=== PATIENT | female | born 1980 | race Caucasian/White ===

== ENCOUNTER 2019-04-18 07:13 | Emergency (ER) | payer MEDICARE, MEDICAID, SELFPAY ==
--- NOTE | ~2019-04-18 | XR_ITS ---
EXAMINATION: XR chest 2V EXAM DATE: 04/18/2019 08:39 INDICATION: Cough, shortness of breath and fever. TECHNIQUE: Frontal and lateral projections of the chest obtained and reviewed. Comparison is made to prior examination from 08/10/2006. FINDINGS: The lungs are clear. There are no pleural effusions. The cardiomediastinal silhouette is within normal limits. There is no pneumothorax suspected. The bones and soft tissues are unremarkab le. There are cholecystectomy clips. There is a left-sided Chemo-Port with intact line. IMPRESSION: No acute cardiopulmonary findings. Reviewed, dictated and finalized at location A. 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
[2019-04-18 07:19] VITALS: BP 154/92; PULSE 90; RESP 20; TEMP 36.8; O2SAT 94
[2019-04-18 07:28] VITALS: RESP 22; O2SAT 97
--- NOTE | 2019-04-18 07:59 | ED.URI ---
HPI - URI/Sore Throat General Chief Complaint: Unspecified Stated Complaint: flu like symptoms Time Seen by Provider: 04/18/19 07:33 Source: patient Mode of arrival: ambulatory Limitations: no limitations History of Present Illness HPI Narrative: Patient is a 38-year-old female who presents to the emergency department with complaint of flulike symptoms. Patient reports onset of symptoms 2 days ago. Patient had onset of wheezing last night. She reports mildly productive cough, congestion, and fever as high as 102. She denies any nausea, vomiting, or diarrhea. She reports back pain, myalgias, and headache. MD elicited complaint: cough Onset (ago): day(s) (2) Consistency: constant Associated symptoms: fever, myalgias, headache, nasal congestion and cough Related Data Allergies Allergy/AdvReac Type Severity Reaction Status Date / Time prochlorperazine Allergy Mild Unverified 11/23/13 16:32 promethazine Allergy Mild Unverified 11/23/13 16:32 Shrimp Allergy Severe THROAT Uncoded 11/23/13 16:32 SWELLS RASH Contrast Media Allergy Mild Uncoded 11/23/13 16:32 POLYESTER Allergy Mild Uncoded 06/18/07 16:44 Review of Systems Review of Systems: All systems reviewed & are unremarkable except as noted in HPI and below Constitutional: Constitutional: Reports chills and Reports fever(s) ENT: Reports nasal congestion Respiratory: Respiratory: Reports cough, Reports dyspnea and Reports wheezing Gastrointestinal: Gastrointestinal: Denies diarrhea, Denies nausea and Denies vomiting Musculoskeletal: Musculoskeletal: Reports back pain and Reports myalgias PMFSH Past Medical History Medical History (Updated 04/18/19 @ 09:15 by Sandy Villagran MD) Factor XII deficiency Neuropathy Port-A-Cath in place RSD (reflex sympathetic dystrophy) Surgical History Surgical History (Updated 04/18/19 @ 08:05 by Sandy Villagran MD) History of cholecystectomy History of orthopedic surgery History of strabismus surgery Social History Social History (Updated 04/18/19 @ 08:05 by Sandy Villagran MD) Smoking status: Former smoker Additional smoking assessment comments: Currently vaping Gender identity (if verbalized by the patient): Female Exam Const: General: cooperative, alert and ill appearing acutely Nutritional Appearance: well nourished Orientation/consciousness: patient oriented x3 Limitations: no limitations HENMT: Mouth: Yes lip normal and Yes moist mucous membranes Resp: Effort & Inspection: normal respiratory effort and Actively coughing actively coughing Auscultation: wheezes scattered wheezes Cardio: Rate: regular rate Rhythm: regular rhythm GI: GI Palp: Yes Soft to palpation and No Tenderness to palpation present (GI) Auscultation: normal bowel sounds Skin: General skin exam: normal color Neuro: General: patient oriented x3 Cognition (Neuro): normal cognition Speech: normal speech Extrem: General: normal to inspection, full ROM and no clubbing, cyanosis or edema Psych: Mental Status: mental status grossly normal Affect: normal affect Attitude: cooperative Course Course Emergency Course: Wheezing improved after nebulizer treatment. Patient instructed on MDI use with spacer by respiratory therapy staff. Patient will be prescribed Tamiflu as she is in the treatment window and having respiratory symptoms. Patient advised on symptomatic management and appropriate follow-up care. Vital Signs Vital signs: Vital Signs Temperature 98.2 F 04/18/19 07:19 Pulse Rate 90 04/18/19 07:19 Respiratory Rate 20 04/18/19 07:19 Blood Pressure 154/92 H 04/18/19 07:19 Pulse Oximetry 94 04/18/19 07:19 Temperature 98.2 F 04/18/19 07:19 Pulse Rate 99 04/18/19 09:05 Respiratory Rate 16 04/18/19 09:05 Blood Pressure 113/71 04/18/19 09:05 Pulse Oximetry 96 04/18/19 09:05 MDM - URI/Sore Throat Lab Data Attestation: I reviewed the patient's lab results. Labs:
[2019-04-18] MEDS: ALBUTEROL SULFATE NEB 2.5 MG/0.5 ML INH 5 MG INHALATION (08:07)
[2019-04-18] MEDS: IPRATROPIUM BR 0.02% INH SOLN 0.5 MG/2.5 ML VIAL INHALATION (08:07)
[2019-04-18 08:08] VITALS: PULSE 92; RESP 20
[2019-04-18 09:05] VITALS: BP 113/71; PULSE 99; RESP 16; O2SAT 96
[2019-04-18 09:33] VITALS: BP 113/73; PULSE 92; RESP 18; O2SAT 99
== END 2019-04-18 09:34 | disposition home or self-care (01) ==
PROVIDERS: Emergency Provider Emergency Medicine
DX: J10.1 Influenza due to other identified influenza virus with other respiratory manifestations (principal)
CPT/HCPCS: 71046; 87804; 94640; 99283

== ENCOUNTER 2020-07-27 14:59 | Outpatient (CLI) | payer MEDICARE, MEDICAID, SELFPAY ==
--- NOTE | ~2020-07-27 | MM_ITS ---
EXAMINATION: MM screening alton BI w ryan HISTORY: Screening mammogram TECHNIQUE: Craniocaudal and mediolateral oblique 3-D tomosynthesis images were obtained and synthetic 2-D images were generated. CAD analysis was submitted and interpreted. COMPARISON: 02/04/2019 bilateral digital screening mammogram BREAST PARENCHYMAL COMPOSITION: The breasts are extremely dense, which lowers the sensitivity of mamm ography. FINDINGS: Bilateral breast masses are suggested including approximately 2.47 mass in the upper mid in ner left breast at mid depth with halo sign, suggestive of cysts and suggestion of interval approxima tely 1.6 cm mass in the upper mid outer right breast. IMPRESSION: 1. Bilateral breast masses are suggested 2. Bilateral diagnostic mammography and bilateral breast ultrasound examination are recommended. BI-RADS Category 0: Incomplete: Needs additional imaging evaluation. Reviewed, dictated and finalized at location A.
== END 2020-07-27 15:00 | disposition home or self-care (01) ==
LOC: ANHIMG 15:15
PROVIDERS: PCP Student in an Organized Health Care Education/Training Program
DX: Z12.31 Encounter for screening mammogram for malignant neoplasm of breast (principal); R92.8 Other abnormal and inconclusive findings on diagnostic imaging of breast
CPT/HCPCS: 77063; 77067

== ENCOUNTER 2020-09-04 12:26 | Outpatient (CLI) | payer MEDICARE, MEDICAID, SELFPAY ==
--- NOTE | ~2020-09-04 | MMUS_ITS ---
EXAMINATION: MM diagnostic mammo BI, US breast BI complete HISTORY: Bilateral breast masses reported on 07/27/2020 screening mammogram TECHNIQUE: Additional 3-D tomosynthesis images of both breasts were performed and synthetic 2-D image s were generated. CAD analysis was submitted and interpreted. High resolution complete bilateral [address] ultrasound was performed. COMPARISON: 07/27/2020, 02/04/2019 bilateral digital screening mammogram examinations FINDINGS: MAMMOGRAPHIC FINDINGS: Very dense stroma is noted bilaterally which may obscure masses. There is an approximately 2 cm mass in the central left breast with halo sign, likely a cyst. Additio nal masses are suggested but are partially obscured by fibroglandular stroma. Bilateral complete [address] ultrasound examination was performed. ULTRASOUND: No suspicious solid lesion or suspicious shadowing of either breast is evident. Right breast: There are 2 right breast simple cysts, the larger cyst at 1:00 5 cm from the nipple, measuring up to 1.5 cm maximal dimension. 8 mm cyst is noted at 10:00 6 cm from the nipple. Left breast: There is a mildly septated cyst at the left breast at 12:00 2 cm from the nipple, measuring up to 2.5 x 2.6 x 12 mm dimension, with through transmission posterior enhancement and no internal vascularity . There is an 8 mm cyst on the left at L2-3 o'clock. IMPRESSION: 1. No mammographic evidence of malignancy; bilateral breast cysts 2. Routine mammographic screening is recommended BI-RADS Category 2: Benign finding(s). Reviewed, dictated and finalized at location A. IMPRESSION: 1. No mammographic evidence of malignancy; bilateral breast cysts 2. Routine mammographic screening is recommended BI-RADS Category 2: Benign finding(s).
== END 2020-09-04 12:27 | disposition home or self-care (01) ==
LOC: ANHIMG 12:27
PROVIDERS: PCP Student in an Organized Health Care Education/Training Program; Visit Provider Obstetrics & Gynecology
DX: R92.8 Other abnormal and inconclusive findings on diagnostic imaging of breast (principal)
CPT/HCPCS: 76641; 77066

== ENCOUNTER 2021-08-11 15:54 | Emergency (ER) | payer MEDICARE, MEDICAID, SELFPAY ==
[2021-08-11 16:06] VITALS: BP 128/73; PULSE 106; RESP 18; TEMP 36.2; O2SAT 99
--- NOTE | 2021-08-11 16:07 | ED.WOUNDLAC ---
HPI - Wound/Laceration General Chief Complaint: Wound/Laceration Stated Complaint: laceration rt middle finger Time Seen by Provider: 08/11/21 16:07 Source: patient, RN notes reviewed and old records reviewed Mode of arrival: ambulatory Limitations: no limitations History of Present Illness HPI narrative: 41 year old female who presents to [facility] care with complaints of laceration to the tip of her right middle finger while using a new mandolin to cut up vegetables. Patient reports that she can't get it to stop bleeding with a pressure dressing. Patient has history of bleeding disorder with platelet disease and Factor 12 deficiency and has to take DDAVP at intervals for her disease process and has implanted port to receive medications, Patient states that she last took DDAVP yesterday. Patient reports that she has not had tetanus for 10 years. Onset (ago): minute(s) (45 minutes prior to arrival) Extremity Location: Right: hand (tip of right middle finger) Patient tetanus UTD: No Treatments prior to arrival: bandage Related Data Home Medications Medication Instructions Recorded Confirmed zolpidem 10 mg tablet 10 tablet HS 08/11/21 08/11/21 Allergies Allergy/AdvReac Type Severity Reaction Status Date / Time prochlorperazine Allergy Mild Verified 08/11/21 16:09 promethazine Allergy Mild Verified 08/11/21 16:09 Shrimp Allergy Severe THROAT Uncoded 08/11/21 16:09 SWELLS RASH Contrast Media Allergy Mild Uncoded 08/11/21 16:09 POLYESTER Allergy Mild Uncoded 08/11/21 16:09 Review of Systems Review of Systems: CONSTITUTIONAL: Denies fever, chills, or sweats. EYES: Denies visual changes, redness, or discharge. ENT: Denies rhinorrhea, congestion, sore throat, or otalgia. CARDIOVASCULAR: Denies chest pain, palpitations, or edema. RESPIRATORY: Denies cough or dyspnea. GASTROINTESTINAL: Denies abdominal pain, nausea, vomiting, or diarrhea. GENITOURINARY: Denies dysuria or hematuria. SKIN: Denies rash or itching.positive for avulsion of skin from the tip of right middle finger with bleeding present. MUSCULOSKELETAL: Denies back pain, joint pain, or myalgia. NEUROLOGIC: Denies headache, numbness, or weakness. PSYCHIATRIC: Denies anxiety or depression. [facility] Past Medical History Medical History Factor XII deficiency Neuropathy Port-A-Cath in place RSD (reflex sympathetic dystrophy) Surgical History Surgical History History of cholecystectomy History of orthopedic surgery History of strabismus surgery Social History Social History (Updated 08/11/21 @ 16:52 by Catie Grimaldo NP) Smoking status: Current every day smoker Tobacco type: e-cigarettes/vaping Additional smoking assessment comments: Currently vaping Substance use type: does not use Living arrangements: with family Gender identity (if verbalized by the patient): Female Comments At time of signature, agree with nursing past medical, surgical, social and family history. There is no relevant family history pertinent to the presenting complaint Exam Narrative: GENERAL: Well-appearing, well-nourished, and in no acute distress. HEAD: Normocephalic, atraumatic. EYES: PERRLA and EOMI. ENT: Nares clear, no rhinorrhea or epistaxis. Mucous membranes moist.TM's normal with good light reflex, throat pink with no lesions or exudates, tonsils with no swelling NECK: Supple. No lymphadenopathy CHEST: Clear to auscultation. No respiratory distress.SAO2 99% on room air HEART: Regular rate and rhythm. No murmur heard. Normal peripheral pulses. ABDOMEN: Soft, nontender, nondistended, normal active bowel sounds. EXTREMITIES: Normal range of motion. No edema. SKIN: Warm, dry, no rash.avulsion at tip of right middle finger with bleeding, stopped with use of Surgicel and pressure dressing. NEURO: No focal deficits. Alert and oriented x3. Course Course L
[2021-08-11] MEDS: TETANUS,DIPHTHERIA,AC PERTUSSIS ADULT (0.5 ML) BOOSTRIX IM (16:24)
== END 2021-08-11 16:47 | disposition home or self-care (01) ==
PROVIDERS: Emergency Provider Registered Nurse; PCP Student in an Organized Health Care Education/Training Program
DX: S61.202A Unspecified open wound of right middle finger without damage to nail, initial encounter (principal); W27.8XXA Contact with other nonpowered hand tool, initial encounter; Z23 Encounter for immunization; F17.290 Nicotine dependence, other tobacco product, uncomplicated; D68.2 Hereditary deficiency of other clotting factors; G62.9 Polyneuropathy, unspecified; G90.50 Complex regional pain syndrome I, unspecified
CPT/HCPCS: 90471; 90715; 99212; G0463

== ENCOUNTER 2022-10-04 21:48 | Emergency (ER) | payer MEDICARE, MEDICAID, SELFPAY ==
[2022-10-04] VITALS (7 sets, daily range): BP systolic 141–163; BP diastolic 72–80; PULSE 106–130; RESP 13–22; TEMP 36.6; O2SAT 97–100
--- NOTE | 2022-10-04 23:17 | ED.GENADULT ---
HPI - General Adult General Chief complaint: Anxiety Stated complaint: possible allergic reaction Time Seen by Provider: 10/04/22 22:02 History of Present Illness HPI narrative: This is a 42-year-old female presenting ED after a possible allergic reaction. Patient had a sip of moonshine and then became very flushed and nauseous. They then called EMS who gave her a dose of epinephrine. After receiving epinephrine she became jittery, developed feelings of impending doom with perioral tingling. patient has history of anxiety. patient has nausea but no vomiting, no wheezing, no urticaria, no diarrhea. Related Data Home Medications Medication Instructions Recorded Confirmed zolpidem 10 mg tablet 10 tablet HS 08/11/21 08/11/21 Allergies Allergy/AdvReac Type Severity Reaction Status Date / Time prochlorperazine Allergy Mild Unknown Verified 10/04/22 21:50 promethazine Allergy Mild Unknown Verified 10/04/22 21:50 Shrimp Allergy Severe THROAT Uncoded 10/04/22 21:50 SWELLS RASH Contrast Media Allergy Mild Unknown Uncoded 10/04/22 21:50 PMFSH Past Medical History Medical History Factor XII deficiency Neuropathy Port-A-Cath in place RSD (reflex sympathetic dystrophy) Surgical History Surgical History History of cholecystectomy History of orthopedic surgery History of strabismus surgery Social History Social History Smoking status: Current every day smoker Tobacco type: e-cigarettes/vaping Additional smoking assessment comments: Currently vaping Substance use type: does not use Living arrangements: with family Gender identity (if verbalized by the patient): Female Exam Narrative: APPEARANCE: Patient appears anxious Head: atraumatic. speaking in normal voice EYES: EOMI, NOSE: Atraumatic NECK: Trachea midline RESPIRATORY: No increased rate of breathing, clear to auscultation CARDIOVASCULAR: tachycardic, no peripheral edema ABDOMINAL: Non-distended MUSCULOSKELETAl: No obvious deformities NEURO: Alert. Moving 4/4 extremities SKIN:: no urticaria PSYCHIATRIC: Normal affect Course Vital Signs Vital signs: Vital Signs Temperature 97.8 F 10/04/22 21:51 Pulse Rate 113 H 10/04/22 21:51 Respiratory Rate 22 H 10/04/22 21:51 Blood Pressure 149/74 H 10/04/22 21:51 Pulse Oximetry 100 10/04/22 21:51 Oxygen Delivery Room Air 10/04/22 21:51 Temperature 97.8 F 10/04/22 21:51 Pulse Rate 108 H 10/04/22 23:30 Respiratory Rate 17 10/04/22 23:30 Blood Pressure 141/72 H 10/04/22 22:46 Pulse Oximetry 97 10/04/22 22:05 Oxygen Delivery Room Air 10/04/22 22:05 Medical Decision Making MDM Narrative Medical decision making narrative: -Presentation: 42-year-old female presenting with possible allergic reaction and after receiving epi started hyperventilating. -DDX includes but is not limited to: cutaneous allergies, anxiety attack, epinephrine sensitivity -Co-morbidities complicating care: anxiety -Social determinants of health: disabled due to pain, lives with family -External Chart Review: none -Hx from independent Sources: EMS -Independent interpretation of studies: none -Discussion of Management/Consultants: none -Dx tests considered but not ordered: none -Procedures: none -Interventions: 2 mg Ativan, 2 L normal saline, 10mg dexamethasone, Zyrtec 10mg, Pepcid 40 mg -Shared decision making / Disposition: patient's symptoms resolved after Ativan. She has had no recurrence of her anxiety or flushing. Patient will be discharged. Return precautions given. -RX Vital Signs Vital Signs: Vital Signs Temperature 97.8 F 10/04/22 21:51 Pulse Rate 113 H 10/04/22 21:51 Respiratory Rate 22 H 10/04/22 21:51 Blood Pressure 149/74 H 10/04/22 21:51 Pulse Oximetry 100 07/2
[2022-10-04] MEDS: FAMOTIDINE 20 MG/2 ML VIAL 40 MG (23:35)
[2022-10-04] MEDS: LORazepam INJ (*CRX) 2 MG/ML VIAL (23:35)
[2022-10-04] MEDS: SODIUM CHLORIDE 0.9% IV 2,000 ML 999 ML (23:35)
--- NOTE | 2022-10-04 23:36 | PC.NURSE ---
This RN overrode medications prescribed by EDP Dr. Hollis due to downtime.
[2022-10-05 00:53] VITALS: BP 117/68; PULSE 98; RESP 16; O2SAT 96
== END 2022-10-05 01:00 | disposition home or self-care (01) ==
PROVIDERS: Emergency Provider Emergency Medicine; PCP Student in an Organized Health Care Education/Training Program
DX: T78.40XA Allergy, unspecified, initial encounter (principal); R23.2 Flushing; F41.9 Anxiety disorder, unspecified; D68.2 Hereditary deficiency of other clotting factors; F17.290 Nicotine dependence, other tobacco product, uncomplicated; Z90.49 Acquired absence of other specified parts of digestive tract
CPT/HCPCS: 96361; 96374; 96375; 99284; J1100; J2060; J7030

== ENCOUNTER 2025-02-12 16:20 | Emergency (ER) | payer MEDICARE, MEDICAID, SELFPAY ==
--- OUTSIDE RECORDS SUMMARY | 2023-08-29 15:30 | XMS_ITS ---
Author Organization [facility] ([address]) Address [address] [place] [address] Care Team Providers Care Gold Cutter Name Role Phone JavierAquiles Primary Care Provider Hernan Mitchell Unavailable [phone] [facility], Provider Unavailable Unavailab le Allergies Allergen (clinical drug ingredient) Drug/Non Drug Allergy documented on EMR Reaction Allergy Type Onset Date Status Information temporarily unavailable COMPAZINE (uncoded) Dystonic Allergy Active REASON FOR VISIT Multum To [facility] Conversion Encounter Medications Medication SIG (Take, Route, Fr equency, Duration) Notes Start Date End Date Status Cetirizine HCl 10 MG 1 tab(s) orally BID , 3-4 times daily PRN; Duration: 30 days Active Pepcid 20 MG 1 tab(s) orally 2 ti mes a day; Duration: 30 days Active Lexapro 20 MG 1 tab(s) orally once a day Active oxyCODONE HCl 5 MG 1 tab(s) orally ever y 8 hours, PRN Active Zolpidem Tartrate 10 MG 1 tab(s) orally once a day (at bedtime) Active Encounters Encounter Location Date Provider Diagnosis [facility] [address] [address] 08/29/2023 Provider [facility] Other urticaria L50.8 Assessments Encounter Date Diagnosis (ICD Code) Assessment Notes Treatment Notes Treatment Clinical Notes Section Notes 08/29/2023 Other urticaria (ICD-10 - L50.8) Plan Of Treatment Medication Medication Name Sig Start Date Stop Date Notes Cetirizine HCl 10 MG 1 tab(s) orally BID , 3-4 times daily PRN; Duration: 30 days Pepcid 20 MG 1 tab(s) orally 2 ti mes a day; Duration: 30 days Progress Notes * Liza DONISDOB:[birth year] (44 yo F)Acc No.[id number]:08/29/2023 Patient: Liza MORA Provider: Arsen Stockton :1980 A ge:43 Y S ex:Female Date:08/29/2023 Address:[address] [place], [place] [id number] Pcp:Aquiles Herrera Subjective: * Chief Complaints: * [facility] . [facility] * Medical History: * Medications: T aking Zolpidem Tartrate 10 MG Tablet 1 tab(s) orally once a day (at bedtime) , Taking Lexapro 20 MG Tablet 1 tab(s) orally once a day , Taking oxyCODONE HCl 5 MG Tablet 1 tab(s) orally every 8 hours, PRN * Allergies: C OMPAZINE: Dystonic. Objective: * Vitals: Assessment: * Assessment: 1. 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
--- OUTSIDE RECORDS SUMMARY | 2025-02-12 16:23 | XMS_ITS | Clinical Summary ---
Author Organization [facility] Address [address] [place] [address] Care Team Providers Care Regional Hr Manager Name Role Phone Aquiles Herrera Arsen SANTOS Primary Care Provider + Burton Campbell MD Unavailable [phone] Allergies Active Allergy Reactions Criticality Noted Date Comments Aspirin Other (see comment),Unknown 01/19/2009 Factor XII deficiency Pt has clotting disorder Diphenhydramine Palpitations Low 05/20/2019 Ibuprofen Other (see comment),Unknown 01/19/2009 Factor XII deficiency Pt has clotting disorder Iodine Unknown Low 10/04/2022 Prochlorperazine Other (see comment),Unknown 11/05/2018 Dystonic reaction Promethazine Unknown Low 10/04/2022 Dystonic Shellfish Allergy Throat swelling High 10/04/2022 Medications sodium chloride 0.9 % solution 020 Active heparin flush 100 unit/mL Solution 5 mLs (500 Units total). 021 Active clotrimazole 1 % creamIndications: Rash and nonspecific skin eruption Apply topically 2 (two) times daily. Use for 4 weeks; call back if not improving 60 g 021 Active EPINEPHrine 0.3 MG/0.3ML injectionIndicati ons:Anaphylaxis, subsequent encounter,Shellfi sh allergy Inject 0.3 mLs (0.3 mg total) into the muscle as needed for Anaphylaxis. 1 each 023 Active hydrocortisone 2.5 % creamIndications: Hemorrhoids, unspecified hemorrhoid type Apply topically 2 (two) times daily. Do not use for more than 4 weeks continuously 28 g 023 Active desmopressin (DDAVP) 4 MCG/ML injection 023 Active cetirizine (ZYRTEC) 10 MG tablet Take 1 tablet (10 mg total) by mouth daily. Active omeprazole (PRILOSEC) 40 MG capsule Active ondansetron (ZOFRAN-ODT) 4 MG disintegrating tablet Active escitalopram (LEXAPRO) 20 MG tabletIndications :Anxiety Take 1 tablet (20 mg total) by mouth daily. 90 tablet 3 024 Active oxyCODONE immediate release (ROXICODONE) 10 MG immediate release tabletIndications :Chronic Pain Take 1 tablet (10 mg total) by mouth 3 (three) times daily as needed. Indications: Chronic Pain 90 tablet 025 Active HYDROcodone-aceta minophen (NORCO) 5-325 MG tabletIndications :Acute Pain < 3 Day Supply Take 1 tablet by mouth every 6 (six) hours as needed for Pain. Indications: Acute Pain < 3 Day Supply 10 tablet 025 Active zolpidem (AMBIEN) 10 MG tabletIndications :Primary insomnia TAKE 1 TABLET(10 MG) BY MOUTH EVERY NIGHT NEEDED FOR SLEEP 30 tablet 2 025 Active LORazepam (ATIVAN) 1 MG tabletIndications :Anxiety TAKE 1 TABLET BY MOUTH TWICE DAILY NEEDED 60 tablet 025 Active LORazepam (ATIVAN) 1 MG tabletIndications :Anxiety TAKE 1 TABLET BY MOUTH TWICE DAILY NEEDED 60 tablet 025 2024 Discontinued Active Problems Problem Noted Date Diagnosed Date IUD (intrauterine device) in place 04/01/2023 Urticaria 01/06/2023 Chronic rhinitis 01/06/2023 Epigastric pain 08/01/2022 Overview (08/01/2022): Added automatically from request for surgery [id number] Nausea 08/01/2022 Overview (08/01/2022): Added automatically from request for surgery [id number] Diarrhea, unspecified type 08/01/2022 Overview (08/01/2022): Added automatically from request for surgery [id number] Melena 08/01/2022 Overview (08/01/2022): Added automatically from request for surgery [id number] Hemorrhoids, unspecified hemorrhoid type 023 Overview (08/01/2022): Added automatically from request for surgery [id number] Increased frequency of urination 05/30/2020 Overview (01/06/2023): Frequency of micturition; Progress: Stable Added By: Naomy Mcneill Add to Current Problems: YES ProblemStatus: Current Primary insomnia 03/19/2020 Anxiety 03/19/2020 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 Drop foot gait 11/07/2018 Primary osteoarthritis of left knee 11/07/2018 Chronic prescription opiate use 11/07/2018 Family history of breast cancer 06/24/2018 Overview (01/06/2023): Family history of breast cancer; Progress: Stable Added By: Karma Armstrong Add to Current Problems: NO ProblemStatus: Resolve; Start Date : 07/12/2014 Family history of malignant neoplasm of breast; Progress: Stable Added By: Yoon Mcdaniel Add to Current Problems: YES ProblemStatus: Current Evaluation for intrauterine contraception 2014 Overview (01/06/2023): Patient with intrauterine contraceptive device (IUD); Location: None Severity: Moderate Progress: Stable Added By: Liza Hughes Add to Current Problems: YES ProblemStatus: Current Patient with intrauterine contraceptive device (IUD); Severity: Moderate Progress: Stable Added By: Liza Hughes Add to Current Problems: NO ProblemStatus: Resolve Family history of malignant neoplasm of breast in first degree relative 07/12/2014 Overview (01/06/2023): Family history of breast cancer; Location: None Progress: Stable Added By: Karma Armstrong Add to Current Problems: YES ProblemStatus: Current Von Willebrands disease 01/22/2009 Overview (11/05/2018): Overview: Variant Resolved Problems Problem Noted Date Diagnosed Date Resolved Date Medical marijuana use 11/07/20182023 Electrolyte abnormality 01/22/200910/15 Suicidal ideation 01/22/2009 11/05/2018 Encounters Date Type Department Care Team Description 12/13/2024 Results Follow-Up [facility] Family & Internal Medicine [address] [address] Georgina Lombardo H, APNP MG/PCCL UDS W CONF, VITAMIN D, 25 OH, LIPID PANEL, Additional followed-up results: 3 12/09/2024 8:40 AM CDT Office Visit [facility] Family & Internal [address] [address] Aquiles Herrera, DO Anxiety (6 month follow up. No questions or concerns. ) 12/09/2024 Travel from Last 3 Months Immunizations Immunization Administration Dates Next Due Fluzone 6 Months+ Quad (0.5 mL Prefilled Syringe) 03/19/2020 Influenza Adult (Generic) 02/18/2023(Def erred: Patient Refused),07/10/2021(Deferred: Patient Refused),03/19/2020 PFIZER COVID-19 (ORIGINAL FORMULATION, PURPLE CAP) mRNA, LNP-S, PF, 30 MCG/0.3 ML DOSE 06/09/2020,05/17/2020 Tdap (Generic) 08/11/2021 Family History * Patient is adopted Medical History Relation Comments Cancer Maternal Aunt Breast Cancer Maternal Grandmother Breast Cancer Mother Breast Cancer Sister Breast Relation Status Comments Maternal Aunt Maternal Grandmother Mother Sister Social History Tobacco Use Types Packs/Day Years Used Date Smoking Tobacco: Former Cigarettes 1 - 2016 Smokeless Tobacco: Never Tobacco Cessation:Counseling Given: Yes Comments:I vape currently Alcohol Use Standard Drinks/Week Comments Never 0 (1 standard drink = 0.6 oz pur e alcohol) AUDIT-C Answer Date Recorded Frequency of Alcohol Consumption Never 11/05/2018 Average Number of Drinks Not on file 019 Frequency of Binge Drinking Not on file 10/15 PHQ-2 Answer Date Recorded Patient Health Questionnaire-2 Score 0 12/09/2024 Comments No Sex and Gender Information Value Date Recorded Sex Assigned at Female 03/02/2024 1:19 PM BIZTALK CONSULTANT Legal Sex Female 7:18 PM CDT Gender Identity Female 03/02/2024 1:19 PM BIZTALK CONSULTANT Sexual Orientation Straight 11/05/2018 10 :12 AM CDT Occupation Industry Job Start Date Job End Date Disability Not on file Not on file Not on file Last Filed Vital Signs Vital Sign Reading Time Taken Comments Blood Pressure 132/86 12/09/2024 9:02 AM CDT Pulse 87 12/09/2024 9:02 AM CDT Temperature 36.8 C (98.2 F) 12/09/2024 9:02 AM CDT Respiratory Rate 18 12/09/2024 9:02 AM CDT Oxygen Saturation 98% 12/09/2024 9:02 AM CDT Inhaled Oxygen Concentration - - Weight 102.1 kg (225 lb 1.6 oz) 12/09/2024 9:02 AM CDT Height 157.5 cm (5' 2) 12/09/2024 9:02 AM CDT Body Mass Index 41.17 12/09/2024 9:02 AM CDT Plan of Treatment Upcoming Encounters Date Type Department Care Team (Late st Contact Info) Description 06/08/2025 8:40 AM CDT Office Visit [facility] Family & Internal Medicine - [address] [phone] Aquiles Herrera, [address] [place] [id number] Health Maintenance Due Date Last Done Comments Annual Physical 1984 HPV Vaccines (1 - 3-dose SCDM series) 2008 Mammogram Screening 09/04/2022 09/04/2020, 09/04/2020, 07/27/2020, Additional history exists Cervical Cancer Screening Pap Smear (Age 30 to 64) Every 3 Years 05/31/2023 05/30/2020 Influenza Adult (#1) 2024 03/19/2020, 03/19/19 21 Hepatitis B Vaccines (1 of 3 - 19+ 3-dose series) 03/02/2025 Postponed from 2000 (Patient/Guardian Refusal) Meningococcal B Vaccine (1 of 4 - Increased Risk) 03/02/2025 Postponed from 05/26/1991 (Patient Refused) Meningococcal Vaccine (1 - Risk 2-dose series) 03/02/2025 Postponed from 05/26/1983 (Patient/Guardian Refusal) Cervical Cancer Screening Pap with HPV Testing (Age 30 to 64) Every 5 Years 05/31/2025 05/31/2020, 07/13/2014 Cervical Cancer Screening with HPV 05/31/2025 COVID-19 Vaccine (2024- season) 2025 06/09/2020, 05/17/2020 Postponed from 11/14/2024 (Patient Refused) DTaP, Tdap and Td Vaccines (2 - Td or Tdap) 08/12/2031 08/11/2021 Hepatitis C Completed 10/14/2022 PHQ-2 (Physician [place]) Completed 12/09/2024 Hepatitis A Vaccines Aged Out No long er eligible based on patient's age to complete this topic Pneumococcal Vaccine: Pediatrics (0 to 5 Years) and At-Risk Patients (6 to 49 Years) Aged Out No longer eligible based on patient's age to complete this topic RSV Immunizations Under 20 Months Aged Out No longer eligible based on patient's age to complete this topic Procedures Procedure Name Priority Date/Time Associated Diagnosis Comments TSH W/REFLEX Routine 12/09/2024 9:52 AM CDT Annual physical exam Screening for lipid disorders Screening for endocrine, metabolic and immunity disorder CBC W/DIFF AUTOMATED Routine 12/09/2024 9:52 AM CDT Anxiety High risk medication use Screening mammogram for breast cancer BMI 40.0-44.9, adult ([facility]) Vitamin D deficiency Annual physical exam Screening for lipid disorders Screening for endocrine, metabolic and immunity disorder Primary insomnia Flushing Positive TAYLOR (antinuclear antibody) Factor XII deficiency ([facility]) COMPREHENSIVE METABOLIC PANEL Routine 12/09/2024 9:52 AM CDT Annual physical exam Screening for lipid disorders Screening for endocrine, metabolic and immunity disorder LIPID PANEL Routine 12/09/2024 9:52 AM CDT Annual physical exam Screening for lipid disorders Screening for endocrine, metabolic and immunity disorder VITAMIN D, 25 OH Routine 12/09/2024 9:52 AM CDT Vitamin D deficiency Annual physical exam Screening for lipid disorders Screening for endocrine, metabolic and immunity disorder COLLECTION VENOUS BLOOD VENIPUNCTURE Routine 12/09/2024 9:19 AM CDT Anxiety BMI 40.0-44.9, adult (CMS/HCC) Vitamin D deficiency Annual physical exam Screening for lipid disorders Screening for endocrine, metabolic and immunity disorder Primary insomnia Flushing Positive TAYLOR (antinuclear antibody) Factor XII deficiency (CMS/HCC HHS/HCC) MG/PCCL UDS W CONF Routine 12/09/2024 8: 49 AM CDT Anxiety High risk medication use HEPATITIS C ANTIBODY W/RFX TO HCV RNA Routine 10/14/2022 1:25 PM CDT MAMMOGRAM GENERIC (SCAN ORDER) 09/04/2020 OUTSIDE CYTOPATH CERV/VAG INTERPRET (PAP) 05/31/2020 OUTSIDE CYTOPATH CERV/VAG INTERPRET (PAP) (SCAN ORDER) 05/30/2020 from Last 3 Months or Most Recently Relevant to Health Maintenance Results * TSH W/REFLEX (12/09/2024 9:52 AM CDT) TSH 3.494 0.358 - 3.740 uIU/ML 12/09/2024 4:31 PM CDT [facility] [place] 12/09/2024 9:52 AM CDT Aquiles Herrera DO LABORATORY Final Re sult [facility] [address] [place] [address], * COMPREHENSIVE METABOLIC PANEL (12/09/2024 9:52 AM CDT) [facility] SODIUM S/P/B 141 136 - 145 MMOL/L 12/09/2024 4:31 PM CDT [facility] POTASSIUM S/P/B 4.0 3.5 - 5.1 MMOL/L 12/09/2024 4:31 PM CDT [facility] CHLORIDE S/P/B 104 98 - 107 MMOL/L 12/09/2024 4:31 PM CDT [facility] CO2 28.2 21 - 32 MMOL/L 12/09/2024 4:31 PM CDT [facility] GLUCOSE 94 70 - 99 MG/DL 12/09/2024 4:31 PM CDT [facility] BUN 10 7 - 18 MG/DL 12/09/2024 4:31 PM CDT [facility] CREATININE S/P/B 0.55 0.55 - 1.02 MG/DL 12/09/2024 4:31 PM CDT [facility] CALCIUM S/P/B 9.3 8.4 - 10.5 MG/DL 12/09/2024 4:31 PM CDT [facility] BILIRUBIN TOTAL S/P/B 0.4 0.2 - 1.0 MG/DL 12/09/2024 4:31 PM CDT [facility] ALKALINE PHOSPHATASE S/P/B 96 37 - 98 U/L 12/09/2024 4:31 PM CDT [facility] AST 17 15 - 37 U/L 12/09/2024 4:31 PM CDT [facility] ALT 33 14 - 59 U/L 12/09/2024 4:31 PM CDT [facility] TOTAL PROTEIN S/P/B 6.8 6.4 - 8.2 G/DL 12/09/2024 4:31 PM CDT [facility] ALBUMIN S/P/B 3.8 3.4 - 5.0 G/DL 12/09/2024 4:31 PM CDT [facility] ANION GAP 8.8 5 - 15 MMOL/L 12/09/2024 4:31 PM CDT [facility] Comment:REFERENCE RANGE NOT ESTABLISHED OSMOLALITY (CALC) 291 MOSM/KG 025 4:31 PM CDT [facility] Comment:REFERENCE RANGE NOT ESTABLISHED GFR ESTIMATE >90 >90 ML/MIN/1. 73 M2 12/09/2024 4:31 PM CDT [facility] GFR NOTES GFR REFERENCE S: 12/09/2024 4:31 PM CDT [facility] Comment: THE ESTIMATED GFR IS CALCULATED USING THE 2020 CKD-EPI EQUATION. THE FOLLOWING CATEGORIES FOR GRADING RENAL FUNCTION ARE RECOMMENDED BY THE INTERNATIONAL SOCIETY OF NEPHROLOGY (KDIGO 2012 CLINICAL PRACTICE GUIDELINE). G1,NORMAL OR HIGH: >89 ml/min/1.73 m2 G2,MILDLY DECREASED: 60-89 ml/min/1.73 m2 G3A,MILDLY TO MODERATELY DECREASED: 45-59 ml/min/1.73 m2 G3B,MODERATELY TO SEVERELY DECREASED: 30-44 ml/min/1.73 m2 G4,SEVERELY DECREASED: 15-29 ml/min/1.73 m2 G5,KIDNEY FAILURE: <15 ml/min/1.73 m2 12/09/2024 9:52 AM CDT us Aquiles Herrera DO LABORATORY Final Re sult [facility] [place] [facility] [address] [place] [address], [place] [phone] * (ABNORMAL) LIPID PANEL (12/09/2024 9:52 AM CDT) CHOLESTEROL 201(H) <200 MG/DL 12/09/2024 4:31 PM CDT [facility] TRIGLYCERIDES 238(H) <150 MG/DL 12/09/2024 4:31 PM CDT [facility] HDL 41 >40 MG/DL 12/09/2024 4:31 PM CDT [facility] LDL-C 112(H) <100 MG/DL 12/09/2024 4:31 PM CDT [facility] VLDL CALCULATION 48(H) 5 - 28 MG/DL 12/09/2024 4:31 PM CDT [facility] CHOL/HDL RATIO 4.9(H) 0.0 - 4.0 12/09/2024 4:31 PM CDT [facility] LDL/HDL 2.7(H) 0.41 - 2.13 12/09/2024 4:31 PM CDT [facility] NON HDL CHOLESTEROL 160(H) <140 MG/DL 12/09/2024 4:31 PM CDT [facility] 12/09/2024 9:52 AM CDT us Aquiles Herrera DO LABORATORY Final Re sult [facility] [address] [place] [address], * (ABNORMAL) CBC W/DIFF AUTOMATED (12/09/2024 9:52 AM CDT) [facility] WBC 11.98(H) 4.00 - 10.80 x10'3/uL 12/09/2024 3:54 PM CDT [facility] RBC 4.64 4.10 - 5.40 x10'6/uL 12/09/2024 3:54 PM CDT [facility] HGB 14.3 12.0 - 16.0 G/DL 12/09/2024 3:54 PM CDT [facility] HCT 41.5 36.0 - 47.0 % 12/09/2024 3:54 PM CDT [facility] MCV 89.4 78.0 - 100.0 FL 12/09/2024 3:54 PM CDT [facility] MCH 30.8 27.0 - 31.0 PG 12/09/2024 3:54 PM CDT [facility] MCHC 34.5 33.0 - 36.0 G/DL 12/09/2024 3:54 PM CDT [facility] RDW 12.9 11.5 - 14.5 % 12/09/2024 3:54 PM CDT [facility] PLT 275 150 - 350 x10'3/uL 12/09/2024 3:54 PM CDT [facility] MPV 13.2(H) 7.4 - 10.4 FL 12/09/2024 3:54 PM CDT [facility] Comment:LARGE PLATELETS PRES ENT. DIFFERENTIAL TYPE AUTOMATED DIFFERENTIAL 12/09/2024 3:54 PM CDT [facility] NEUTROPHILS % 77.4 % 12/09/2024 3:54 PM CDT [facility] LYMPHOCYTES % 14.5 % 12/09/2024 3:54 PM CDT [facility] MONOCYTES % 6.8 % 12/09/2024 3:54 PM CDT [facility] EOSINOPHILS % 0.7 % 12/09/2024 3:54 PM CDT [facility] BASOPHILS % 0.4 % 12/09/2024 3:54 PM CDT [facility] IMMATURE GRANS % 0.2 % 12/09/2024 3:54 PM CDT [facility] ABS. NEUTROPHILS 9.28(H) 1.60 - 8.30 x10'3/uL 12/09/2024 3:54 PM CDT [facility] ABS. LYMPHOCYTES 1.74 0.80 - 4.70 x10'3/uL 12/09/2024 3:54 PM CDT [facility] ABS. MONOCYTES 0.81 0.00 - 1.50 x10'3/uL 12/09/2024 3:54 PM CDT [facility] ABS. EOSINOPHILS 0.08 0.00 - 0.40 x10'3/uL 12/09/2024 3:54 PM CDT [facility] ABS. BASOPHILS 0.05 0.00 - 0.20 x10'3/uL 12/09/2024 3:54 PM CDT [facility] ABS. IMMATURE GRANULOCYTES 0.02 0.00 - 0.03 x10'3/uL 12/09/2024 3:54 PM CDT [facility] 12/09/2024 9:52 AM CDT Aquiles Herrera LABORATORY Final Re sult Performing Organization Address City/[facility]/ZIP Co de Phone Number [facility] [address] [place] [address], [place] [phone] * (ABNORMAL) VITAMIN D, 25 OH (12/09/2024 9:52 AM CDT) Pathologist [facility] VITAMIN D 25 HYDROXY TOTAL S/P/B 16.3(L) 30 - 100 NG/ML 12/09/2024 4:31 PM CDT [facility] Comment: DEFICIENT <20 INSUFFICIENT 20-30 SUFFICIENT 30-100 12/09/2024 9:52 AM CDT Aquiles Herrera LABORATORY Final Re sult Performing Organization Address City/[facility]/ZIP Co de Phone Number [facility] [address] [place] [address], [place] [phone] * (ABNORMAL) MG/PCCL UDS W CONF (12/09/2024 8:49 AM CDT) RESULT SUMMARY [facility] Comment: Prescribed Prescribed Not Prescribed Consistent Inconsistent Inconsistent Lorazepam Oxycodone PRESCRIBED DRUG 1 (U) Lorazepam [facility] PRESCRIBED DRUG 2 (U) Oxycodone [facility] FENTANYL SCREEN (U) NEGATIVE <0.5 ng/mL [facility] WOOD LORAINE 6 ACETYLMORPHINE (U) NEGATIVE <10 ng/mL [facility] [place] [place] DESMETHYLTRAMADOL (U) NEGATIVE <100 ng/mL [facility] [place] [place] TRAMADOL (U) NEGATIVE <100 ng/mL [facility] [place] TRAMADOL COMMENTS [facility] Comment:See LDT Notes AMPHETAMINES PM NEGATIVE <500 ng/mL [facility] [place] BARBITURATES PM (U) NEGATIVE <300 ng/mL [facility] [place] BENZODIAZEPINES PM (U) POSITIVE(A) <100 ng/mL [facility] [place] ALPHAHYDROXYALPRAZOLAM PM (U) NEGATIVE <25 ng/mL [facility] [place] [place] MIDAZOLAM PM (U) NEGATIVE <50 ng/mL [facility] [place] [place] ALPHAHYDROXYTRIAZOLAM PM (U) NEGATIVE <50 ng/mL [facility] [place] [place] AMINOCLONAZEPAM PM (U) NEGATIVE <25 ng/mL [facility] [place] OH ET FLURAZEPAM PM (U) NEGATIVE <50 ng/mL [facility] [place] [place] LORAZEPAM PM (U) 125(H) <50 ng/mL [facility] [place] [place] LORAZEPAM PM MEDMATCH (U) CONSISTENT [facility] [place] NORDIAZEPAM PM (U) NEGATIVE <50 ng/mL [facility] [place] [place] OXAZEPAM PM (U) NEGATIVE <50 ng/mL [facility] [place] [place] TEMAZEPAM PM NEGATIVE <50 ng/mL [facility] [place] BENZODIAZEPINES COMMENTS [facility] [place] Comment:See Benzodiazepines Notes, LDT Notes COCAINE METABOLITE PM (U) NEGATIVE <150 ng/mL [facility] [place] MARIJUANA METABOLITE PM (U) NEGATIVE <20 ng/mL [facility] [place] [place] METHADONE PM (U) NEGATIVE <100 ng/mL [facility] [place] [place] OPIATES PM (U) NEGATIVE CONFIRMED <100 ng/mL [facility] [place] [place] CODEINE PM (U) NEGATIVE <50 ng/mL [facility] [place] [place] HYDROCODONE PM (U) NEGATIVE <50 ng/mL [facility] [place] [place] HYDROMORPHONE PM (U) NEGATIVE <50 ng/mL [facility] [place] [place] MORPHINE PM (U) NEGATIVE <50 ng/mL [facility] [place] [place] NORHYDROCODONE PM (U) NEGATIVE <50 ng/mL [facility] O[facility] COMMENTS [facility] Comment:See LDT Notes OXYCODONE PM (U) POSITIVE(A) <100 ng/mL [facility] [place] [place] NOROXYCODONE PM (U) 984(H) <50 ng/mL [facility] NOROXYCODONE PM MEDMATCH (U) CONSISTENT [facility] OXYCODONE PM (U) 1,327(H) <50 ng/mL [facility] OXYCODONE PM MEDMATCH CONSISTENT [facility] OXYMORPHONE PM (U) 433(H) <50 ng/mL [facility] [place] [place] OXYMORPHONE PM MEDMATCH CONSISTENT [facility] OXYCODONE COMMENTS [facility] Comment:See Oxycodone Notes, LDT Notes CREATININE RANDOM (U) 257.0 > or = 20.0 mg/dL [facility] pH PM (U) 5.6 4.5 - 9.0 [facility] [place] OXIDANT NEGATIVE <200 mcg/mL [facility] NOTE [facility] Comment: This drug testing is for medical treatment only. Analysis was performed as non-forensic testing and these results should be used only by healthcare providers to render diagnosis or treatment, or to monitor progress of medical conditions. Benzodiazepines Notes: Lorazepam detected is consistent with the use of the drug Lorazepam. Oxycodone Notes: Oxycodone, Noroxycodone, Oxymorphone detected is consistent with the use of the drug Oxycodone. Oxymorphone detected is consistent with the use of the drug Oxymorphone. Oxymorphone can be a prescribed drug and is also a metabolite of Oxycodone. LDT Notes: Confirmation tests were developed and their analytical performance characteristics have been determined by [employer]. It has not been cleared or approved by the FDA. This assay has been validated pursuant to the CLIA regulations and is used for clinical purposes. medMATCH(R) enables providers to identify if drug use is consistent or inconsistent with a corresponding prescribed medication(s) list. Healthcare Providers needing Interpretation assistance, please contact us at [phone] ([phone]) M-F, 8am to 10pm EST URINE SPECIMEN / Unknown 12/09/2024 8:49 AM CDT 12/10/2024 12:24 AM CDT Narrative Resulting Agency Comment Performing Organization Information: Site ID: [id number] Name: [facility] Address: [address] [place] [address] Director: Elliott Kirkland Site ID: [id number] [facility] Address: [id number] [place] [address] Director: Nikki Ramos MD Aquiles Herrera DO URINE ORDERABLES Final R esult Scripted [facility] [address] [place] [address], Scripted [facility] [address] [place] [address] * HEPATITIS C ANTIBODY W/RFX TO HCV RNA (10/14/2022 1:25 PM CDT) HEPATITIS C AB NON-REACT LUCIO NON-REACT LUCIO Scripted [facility] Comment: HCV antibody was non-reactive. There is no laboratory evidence of HCV infection. In most cases, no further action is required. However, if recent HCV exposure is suspected, a test for HCV RNA (test code 82781) is suggested. For additional information please refer to http://education.[employer]/faq/JNN20d2 (This link is being provided for informational/ educational purposes only.) 10/14/2022 1:25 PM CDT 10/14/2022 1:28 PM CDT Narrative [facility] - 10/15/2022 7:35 AM CDT FASTING:YES FASTING: YES Resulting Agency Comment Performing Organization Information: Site ID: [id number] Name: [facility] Address: [address] [address] Director: Nikki Ramos MD us Aquiles Herrera DO LABORATORY Final Re sult [facility] MARY JANE HORTON [facility] [id number] [place] [id number], [place] * MAMMOGRAM GENERIC (09/04/2020) Anatomical Region Laterality Modality Other 09/04/2020 Narrative 09/04/2020 Ordered by an unspecified provider. us Documents Scanned SCANNING Final Result * OUTSIDE CYTOPATH VAG/CERV PAP WITH HPV (05/31/2020) 05/31/2020 Narrative 05/31/2020 Ordered by an unspecified provider. us Documents Scanned SCANNING Final Result * OUTSIDE CYTOPATH CERV/VAG INTERPRET (PAP) (05/30/2020) 05/30/2020 Narrative 05/30/2020 Ordered by an unspecified provider. us Documents Scanned SCANNING Final Result from Last 3 Months or Most Recently Relevant to Health Maintenance [place] [address] [place] [address] MEDICARE MEDICAID MEDICARE MEDICAID Care Teams Regional Hr Manager Relationship Specialty Start Date End Date Aquiles Herrera DO [address] [place] [phone] PCP - General FAMILY PRACTICE 11/05/18 Burton Campbell MD [place] [id number] [place] [id number] [employer] Energy Advisor CLINICAL CARDIAC ELECTROPHYSIOLOGY 06/14/19
--- OUTSIDE RECORDS SUMMARY | 2025-02-12 16:23 | XMS_ITS | Data Portability ---
Author Organization [facility] [employer] , [facility] Address [address] [place] [address] Assessment No assessment recorded. Plan of Treatment Reminders Order Date Submit Date Provider Last Modified By Organization Details Last Modified Time Details Appointments None recorded. Lab bacterial vaginosis + vaginitis panel, vaginal 2024 025 [employer] [facility], [address] [place], [address], 5 09:26:24 unlisted lab - sureswab(R) advanced vaginitis plus, tma 2024 025 [employer] [facility], [address] [place], [address], 5 13:07:53 bacterial vaginosis + vaginitis panel, vaginal 2024 025 [email or web address], [address] [place], [address], 5 15:16:28 Referral None recorded. Procedures None recorded. Surgeries None recorded. Imaging None recorded. Medication Orders Augmentin 500 mg-125 mg tablet 2024 025 [facility] #[id number], [address], [place], [id number], 5 05:01:09 fluconazole 150 mg tablet 2024 025 [facility] #62850, [address], [place], [id number], 5 17:38:29 Bactrim DS 800 mg-160 mg tablet 2024 025 [facility] #43459, [address], [place], [place], [id number], 5 05:01:02 fluconazole 150 mg tablet 2024 025 [facility] #12619, [address], [place], [place], [id number], 5 14:04:54 mupirocin 2 % topical ointment 2024 025 [facility] #64158, [address], [place], [place], [id number], 14:05:31 mupirocin 2 % topical ointment [address] [facility]17488, [address], [place], [place], [id number], 5 14:05:16 doxycycline monohydrate 100 mg capsule 2024 025 [facility], [address] [facility], [place], [place], [id number], 5 14:04:55 fluconazole 150 mg tablet [address] [facility] #02655, [address], [place], [place], [id number], 14:04:41 Patient TargetsNo targets recorded. Patient InstructionsNo instructions recorded. Reason for Referral None Reported. Results Created Date Observation Date Name Description Value Unit Range Abnormal Flag Note LastModifiedBy Organization Detail LastModifiedTime 07/01/1907/01/2024 VAGIN ITIS PLUS STD PANEL bacterial vaginosis BV neg negati ve normal Not Available [address], [address], 07/01/2024 15:16:28 07/01/19 25 07/01/2024 VAGIN ITIS PLUS STD PANEL sd species C. spp neg negati ve normal Not Available [address], [address], 07/01/2024 15:16:28 07/01/19 25 07/01/2024 VAGIN ITIS PLUS STD PANEL sd glabrata C. gla neg negati ve normal Not Available [address], [address], 07/01/2024 15:16:28 07/01/19 25 07/01/2024 VAGIN ITIS PLUS STD PANEL trichomonas vaginalis CV/TV TRICH neg negati ve normal Not Available [address], [address], 07/01/2024 15:16:28 07/01/19 25 07/01/2024 VAGIN ITIS PLUS STD PANEL chlamydia trachomatis CT neg negati ve normal This repor t is inten ded for us in clini harry monit oring and manag ement of patie nts. It is not inten ded for use in medic al-le gal appli catio n. Not Available [address], [address], 07/01/2024 15:16:28 07/01/19 25 07/01/2024 VAGIN ITIS PLUS STD PANEL neisseria gonorrhoeae GC neg negati ve normal This repor t is inten ded for us in clini harry monit oring and manag ement of patie nts. It is not inten ded for use in medic al-le gal appli catio n. Not Available [address], [address], 07/01/2024 15:16:28 08/02/19 25 08/02/2024 SURES WAB(R ) ADVAN CHRISTA VAGIN ITIS PLUS, TMA sureswab(R) adv bacterial vaginosis (bv), tma POSITI VE negati ve abnormal Not Available [address], [address], 08/02/2024 13:07:53 08/02/19 25 08/02/2024 SURES WAB(R ) ADVAN CHRISTA VAGIN ITIS PLUS, TMA sd species NOT DETECT ED not detect ed normal Not Available [facility] [address], [address], 08/02/2024 13:07:53 08/02/19 25 08/02/2024 SURES WAB(R ) ADVAN CHRISTA VAGIN ITIS PLUS, TMA sd glabrata NOT DETECT ED not detect ed normal Aisha da speci es C. albic ans, C. tropi calis , C. parap chuy is, and/o r C. dubli niens is can be detec deepthi, but not diffe renti ated, in the Aisha da spp. resul t. Not Available [facility] [address], [address], 08/02/2024 13:07:53 08/02/19 25 08/02/2024 SURES WAB(R ) ADVAN CHRISTA VAGIN ITIS PLUS, TMA trichomonas vaginalis (TV), tma NOT DETECT ED not detect ed normal Not Available [facility] [address], [address], 08/02/2024 13:07:53 08/02/19 25 08/02/2024 SURES WAB(R ) ADVAN CHRISTA VAGIN ITIS PLUS, TMA chlamydia trachomatis RNA, tma, urogenital NOT DETECT ED not detect ed normal Not Available [facility] [address], [address], 08/02/2024 13:07:53 08/02/19 25 08/02/2024 SURES WAB(R ) ADVAN CHRISTA VAGIN ITIS PLUS, TMA neisseria gonorrhoeae RNA, tma, urogenital NOT DETECT ED not detect ed normal For addit ional infor joey mosquera refer to https ://ed ucati on.qu dominic dorita Fandeavorvilma. com/f aq/FA Q154 (This link is being provi ded for infor jailene bowman/ haily العليo ses only. ) Not Available [facility] [address] [place], [address], 08/02/2024 13:07:53 01/27/20 25 01/27/2025 VAGIN ITIS PLUS STD PANEL bacterial vaginosis BV POS negati ve abnormal Not Available [facility] [address] [place] [address], [address], 01/28/2025 09:26:24 01/27/20 25 01/27/2025 VAGIN ITIS PLUS STD PANEL sd species C. spp neg negati ve normal Not Available [facility] [address] [place] [address], [address], 01/28/2025 09:26:24 01/27/20 25 01/27/2025 VAGIN ITIS PLUS STD PANEL sd glabrata C. gla neg negati ve normal Not Available [facility] [address] [place] [address], [address], 01/28/2025 09:26:24 01/27/20 25 01/27/2025 VAGIN ITIS PLUS STD PANEL chlamydia trachomatis CT neg negati ve normal This repor t is inten ded for use in clini harry monit oring and manag ement of patie nts. It is not inten ded for use in medic al-le gal appli catio n. Not Available [facility] [address] [place], [address], 01/28/2025 09:26:24 01/27/20 25 01/27/2025 VAGIN ITIS PLUS STD PANEL neisseria gonorrhoeae GC neg negati ve normal This repor t is inten ded for use in clini harry monit oring and manag ement of patie nts. It is not inten ded for use in medic al-le gal appli catio n. Not Available [facility] [address] [place], [address], 01/28/2025 09:26:24 01/27/20 25 01/27/2025 VAGIN ITIS PLUS STD PANEL trichomonas vaginalis TRICH neg negati ve normal Not Available [facility] [address] [place], [address], 01/28/2025 09:26:24 Result Notes None recorded. Problems Name Problem SNOMED Code Status Onset Date Resolution Date Notes Provider Name and Address Organization Details Recorded Time von [place] disorder 996003188 Active 2008 Diana [facility]oFORMERLY [facility] 5 14:40:24 Contrace ptive usage NOS Completed 201404/13/2015 Initiati on of other contrace ptive measures ; Location : None Severity : Moderate Progress : Stable Added By: Yoon Mcdaniel Add to Current Problems : YES ProblemS tatus: Resolve Not Available [facility] 1 05:33:47 Family history of malignan t neoplasm of breast in first degree relative 774469292 Active 2014 Family history of breast cancer; Location : None Progress : Stable Added By: Karma Armstrong Add to Current Problems : YES ProblemS tatus: Current Not Available [facility] 2 19:09:21 Uses IUD (intraut erine device) contrace ption 388762042 Completed 201410/17/2014 Checking , reinsert ion, or removal of intraute rine device; Location : None Progress : Stable Added By: Karma Armstrong Add to Current Problems : YES ProblemS tatus: Resolve Not Available [facility] 2 19:09:14 Uses intraute rine contrace ption 717080997 Completed 201405/30/2020 Patient with intraute rine contrace ptive device (IUD); Location : None Severity : Moderate Progress : Stable Added By: Liza Hughes Add to Current Problems : YES ProblemS tatus: Current Patient with intraute rine contrace ptive device (IUD); Severity : Moderate Progress : Stable Added By: Liza Hughes Add to Current Problems : NO ProblemS tatus: Resolve Not Available [facility] 1 05:34:10 IUCD status 127079744 Active 08/2014 Karma Armstrong MD [address] [place], [address] [facility] 3 15:09:34 Patient encounte r status 743676015 Active 2014 Tramea July null, [facility] 5 14:40:24 Family history of breast cancer 321728760 Active 2018 Tramea July null, [facility] 5 14:40:24 Prescrib ed medicati on regimen behavior finding 640399842 Active 2018 Tramea July null, [facility] 5 14:40:24 Foot-evan p gait 41933642 Active 2018 Tramea July null, [facility] 5 14:40:24 Osteoart hritis of left knee joint 78100244147 9109 Active 2018 Tramea July null, [facility] 5 14:40:24 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 Tramea July null, [facility] 5 14:40:24 Primary insomnia 2369128 Active 2020 Tramea July null, [facility] 5 14:40:24 Anxiety 75032080 Active 2020 Tramea July null, [facility] 5 14:40:24 Increase d frequenc y of urinatio n 103568189 Active 2020 Tramea July null, [facility] 5 14:40:24 Melena 8689966 Active 2022 Tramea July null, [facility] 5 14:40:24 Nausea 449759952 Active 2022 Tramea Juyl null, [facility] 5 14:40:24 Diarrhea 09245218 Active 2022 Tramea July null, [facility] 5 14:40:24 Hemorrho ids 95893912 Active 2022 Tramea July null, [facility] 5 14:40:24 Epigastr ic pain 14300914 Active 2022 Tramea July null, [facility] 5 14:40:24 Urticari a 368238659 Active 2022 Tramea July null, [facility] 5 14:40:24 Chronic rhinitis 77021369 Active 2022 Tramea July null, [facility] 5 14:40:24 Intraute rine contrace ptive device in situ 100861676 Active 2023 Tramea July null, [facility] 5 14:40:24 Problem Notes None recorded. Procedures Surgical History Date Name Laterality Status Provider Name and Address Organization Details Recorded Time 07/05/2024 I&D completed Gali Sanches, [facility] [address] [place], [address], [facility] 07/05/2024 15:40:25 05/30/2020 Date of Last Pap Smear completed Anastasiya Barba [facility] - [facility] 02/26/2023 14:36:18 Imaging Results None recorded. Procedure Notes None recorded. Medical Equipment None Reported. Allergies Allergen ID Allergen Name Allergen Category Reaction Reaction Severity Criticality Documentation Date Start Date Code Code System Note Provider Name and Address Organization Details Recorded Time 674024 Phenergan medicatio n Not available Not available Not available 01/04/20212014 22570 8 RxNorm Sever ity: Moder ate; Not Available [facility] 01:07:31 639391 Compazine medicatio n Not available Not available Not available 01/04/20212014 71580 6 RxNorm Sever ity: Moder ate; Not Available [facility] 1 01:07:31 874553 prochlorp erazine medicatio n other Not available Not available 07/05/20242018 8704 RxNorm Other react ions and sever ities : 'Unkn own'. Tramea July null, [facility] 5 14:39:53 804698 aluminum aspirin Not available other Not available Not available 07/05/20242008 611 RxNorm Other react ions and sever ities : 'Unkn own'. Tramea July null, [facility] 5 14:39:53 267219 ibuprofen medicatio n other Not available Not available 07/05/20242008 5640 RxNorm Other react ions and sever ities : 'Unkn own'. Tramea July null, [facility] 5 14:39:53 782426 promethaz ine medicatio n Not available Not available Not available 07/05/20242022 8745 RxNorm Other react ions and sever ities : 'Unkn own'. Tramea July null, [facility] 5 14:39:53 574638 diphenhyd ramine hydrochlo ride medicatio n palpitati ons Not available Not available 07/05/20242019 1362 RxNorm Tramea July null, [facility] 5 14:39:53 804468 aspirin medicatio n Not available Not available Not available 01/26/20252008 1191 RxNorm Pt has clott ing disor mahad unrec ogniz ed react ion (text : Unkno wn, code: [id number]) (from exter nal [facility] e) Not Available [facility] - [employer] - prod 5 13:39:28 722778 diphenhyd ramine medicatio n palpitati ons Not available low 01/26/20252019 3498 RxNorm Not Available [facility] - External Data Service - prod 13:39:28 434674 iodine medicatio n Not available Not available low 01/29/20252022 5933 RxNorm unrec ogniz ed react ion (text : Unkno wn, code: [id number]) (from exter [facility]) Not Available [facility] - External Data Service - prod 10:02:32 Medications Name Sig Start Date Stop Date Status Note LastModified by Organization Details LastModified Time Mirena 21 mcg/24 hr (up to 8 years) 52 mg intrauter ine device 2014 active Mirena 20 mcg/24 hours (6 yrs) 52 mg Intraute rine Intraute rine Device RxNorm: 644339 Allow Substitu tion: True Refill Denied: No Refill DateOccu rred: 08/19/19 15 Edited by: Karma Arvizu) on 06/02/19 21 Stopped by: keila(Karma Aguilar) on Not Available Not Available Not Available desmopres sin 4 mcg/mL injection solution 04/21 completed Not Available Not Available Not Available doxycycli ne hyclate 100 mg capsule TAKE 1 CAPSULE BY MOUTH DAILY 01/14 completed Not Available Not Available Not Available cetirizin e 10 mg tablet Take 10 mg by oral route. 01/26 completed Not Available Not Available Not Available fluconazo le 150 mg tablet Take 1 tablet every 72 hours by oral route. 2024 active Not Available Not Available Not Avai lable hydrocodo ne 5 mg-acetam inophen 325 mg tablet 1 {tbl} every 6 hours by oral route. 2024 active Not Available Not Available Not Avai lable fluconazo le 200 mg tablet TAKE 1 TABLET BY MOUTH EVERY 72 HOURS 02/26 completed Not Available Not Available Not Available metronida zole 0.75 % (37.5 mg/5 gram) vaginal gel Insert 1 applicat orful every day by vaginal route at bedtime for 5 days. 02/10 completed Not Available Not Available Not Available prednison e 20 mg tablet 12/25 completed Not Available Not Available Not Available doxycycli ne hyclate 50 mg capsule Take 50 mg twice a day by oral route. 01/26 completed Not Available Not Available Not Available metronida zole 500 mg tablet TAKE 1 TABLET BY MOUTH TWICE DAILY FOR 7 DAYS 02/26 completed Not Available Not Available Not Available omeprazol e 40 mg capsule,d elayed release active Not Available Not Available Not Available hydrocort isone 2.5 % topical cream with perineal applicato r Apply twice a day by topical route. 01/26 completed Not Available Not Available Not Available doxycycli ne monohydra te 50 mg capsule TAKE 1 CAPSULE BY MOUTH TWICE DAILY 01/14 completed Not Available Not Available Not Available famotidin e 20 mg tablet 01/14 completed Not Available Not Available Not Available lorazepam 0.5 mg tablet 12/25 completed Not Available Not Available Not Available doxycycli ne monohydra te 100 mg capsule TAKE 1 CAPSULE BY MOUTH TWICE DAILY FOR 14 DAYS 01/26 completed Not Available Not Available Not Available heparin lock flush (porcine) 100 unit/mL intraveno us syringe 500 units by intraven . route. 2020 active Not Available Not Available Not Avai lable cephalexi n 500 mg tablet Take 1 tablet twice a day by oral route for 7 days. 06/30 completed Not Available Not Available Not Available hydrocort isone 2.5 % topical cream APPLY TOPICALL Y TO THE AFFECTED AREA TWICE DAILY. DO NOT USE FOR MORE THAN 4 WEEKS CONTINUO USLY 01/14 completed Not Available Not Available Not Available mupirocin 2 % topical ointment APPLY A SMALL AMOUNT TOPICALL Y TO THE AFFECTED AREA THREE TIMES DAILY 01/26 completed Not Available Not Available Not Available sodium chloride 0.9 % intraveno us solution 01/26 completed Not Available Not Available Not Available lorazepam 1 mg tablet TAKE 1 TABLET BY MOUTH TWICE DAILY NEEDED active Not Available Not Available No t Available epinephri ne 0.3 mg/0.3 mL injection , auto-inje ctor INJECT 1 PEN IN THE MUSCLE ONE TIME DIRECTED NEEDED FOR ANAPHYLA XIS 01/14 completed Not Available Not Available Not Available Valium 10 mg tablet Take 1/2 to 1 tablet(s ) by mouth prior to procedur e 08/12 completed Valium 10mg Tablet RxNorm: 855435 Allow Substitu tion: True Refill Denied: No Not Available Not Available Not Available zolpidem 10 mg tablet 10 mg by oral route. active Not Available Not Available No t Available Percocet 5 mg-325 mg tablet 12/25 completed Percocet 5-325 mg oral tablet RxNorm: [id number] Allow Substitu tion: True Refill Denied: No Refill DateOccu rred: 07/13/19 15 Edited by: Karma Arvizu) on 06/02/19 21 Stopped by: keila(Karma Aguilar) on Not Available Not Available Not Available ondansetr on 4 mg disintegr ating tablet 01/26 completed Not Available Not Available Not Available clotrimaz ole 1 % topical cream Apply twice a day by topical route. 01/26 completed Not Available Not Available Not Available dicyclomi ne 10 mg capsule 01/14 completed Not Available Not Available Not Available Augmentin 500 mg-125 mg tablet Take 1 tablet every 12 hours by oral route for 10 days. 02/12 completed Not Available Not Available Not Available amoxicill in 875 mg-potass ium clavulana te 125 mg tablet 875 mg twice a day by oral route. 07/10 completed Not Available Not Available Not Available Bactrim DS 800 mg-160 mg tablet Take 1 tablet every 12 hours by oral route for 10 days. 08/18 completed Not Available Not Available Not Available escitalop esteban 10 mg tablet TAKE 1/2 TABLET BY MOUTH DAILY FOR 1 WEEK THEN TAKE 1 TABLET BY MOUTH DAILY 12/25 completed Not Available Not Available Not Available escitalop esteban 20 mg tablet 20 mg by oral route. active Not Available Not Available No t Available fentanyl 06/24 completed Fentanyl RxNorm: 4337 Allow Substitu tion: True Refill Denied: No Refill DateOccu rred: 07/13/19 15 Not Available Not Available Not Available DDAVP 02/26 completed DDAVP RxNorm: 439400 Allow Substitu tion: True Refill Denied: No Refill DateOccu rred: 07/13/19 15 Edited by: Karma Arvizu) on 06/02/19 21 Stopped by: keila(Karma Aguilar) on Not Available Not Available Not Available Cymbalta 05/30 completed Cymbalta 20mg Capsules , Delayed Release RxNorm: 275875 Allow Substitu tion: True Refill Denied: No Refill DateOccu rred: 07/13/19 15 Edited by: diane green(Naomy Lane ) on 05/31/19 21 Stopped by: diane green(Naomy Lane ) on 05/31/19 21 Not Available Not Available Not Available Lyrica 06/24 completed Lyrica RxNorm: 456506 Allow Substitu tion: True Refill Denied: No Refill DateOccu rred: 07/13/19 15 Not Available Not Available Not Available oxycodone 10 mg tablet TAKE 1 TABLET BY MOUTH 2-3 TIMES A DAY NEEDED active Not Available Not Available No t Available lidocaine 5 % topical ointment APPLY TO AFFECTED AREA(S) BY TOPICAL ROUTE 1-4 TIMES DAILY NEEDED 2024 active Not Available Not Available Not Avai lable Nuvessa 1.3 % (65 mg/5 gram) vaginal gel Insert 1 applicat orful by vaginal route at bedtime for 1 day. 06/30 completed Not Available Not Available Not Available Clenpiq 10 mg-3.5 gram-12 gram/175 mL oral solution TAKE 1 BOTTLE BY MOUTH TWICE DAILY DIRECTED BY GI DOCTOR 12/25 completed Not Available Not Available Not Available Vitals Date Recorded Body height Body mass index (BMI) Body weight Systolic And Diastolic Provider Name and Address Organization Details Last Updated DateTime 06/30/2024 157.48 cm 42.3 kg/m2 760686.84 g 120/90 mm[Hg] [facility] 12:25:56 Date Recorded Body height Body mass index (BMI) Body weight Systolic And Diastolic Provider Name and Address Organization Details Last Updated DateTime 07/05/2024 157.48 cm 42.2 kg/m2 907816.4 g 120/80 mm[Hg] [facility] [employer] [facility] 07/05/2024 14:46:54 Date Recorded Body height Systolic And Diastolic Provider Name and Address Organization Details Last Updated DateTime 07/08/2024 157.48 cm 120/80 mm[Hg] Tr[facility] [employer] [facility] 07/08/2024 12:32:43 Date Recorded Body height Body mass index (BMI) Body weight Systolic And Diastolic Provider Name and Address Organization Details Last Updated DateTime 08/01/2024 157.48 cm 41.3 kg/m2 064476.16 g 120/80 mm[Hg] [facility] July [facility] 08/01/2024 12:26:46 Date Recorded Body height Body mass index (BMI) Body weight Systolic And Diastolic Provider Name and Address Organization Details Last Updated DateTime 01/26/2025 157.48 cm 42.6 kg/m2 133858.02 g 120/70 mm[Hg] [facility] [employer] [facility] 01/26/2025 13:59:25 Social History Question Answer Notes LastModified by Organizat ion Details LastModified Time Tobacco Smoking Status Never Smoker Daylin otero, [employer] [facility] 12/25/2022 16:14:50 Are You Blind Or Do You Have Difficulty Seeing? No Information not available 12/25/2022 Are You Deaf Or Do You Have Serious Difficulty Hearing? No [email or web address] Information not available 12/25/2022 What Type Of Diet Are You Following? REGULAR [email or web address] Information not available 12/25/2022 What Is The Highest Grade Or Level Of School You Have Completed Or The Highest Degree You Have Received? TA43297-3 [email or web address] Information not available 12/25/2022 How Many Children Do You Have? 0 [email or web address] Information not available 06/30/2024 What Is Your Relationship Status? Single Information not available 12/25/2022 Are You Sexually Active? Yes [email or web address] Information not available 12/25/2022 Sex: Unknown Functional Status Question Answer Note LastModified by Organizat ion Details LastModified Time Do you use any illicit or recreational drugs? No [email or web address] Information not available 12/25/2022 Do you or have you ever used any other forms of tobacco or nicotine? Yes Information not available 12/25/2022 What is your level of alcohol consumption? None [email or web address] Information not available 12/25/2022 Do you or have you ever used smokeless tobacco? [id number] [email or web address] Information not available 12/25/2022 Are you currently employed? No Information not available 12/25/2022 Do you or have you ever used e-cigarettes or vape? Current user of electronic cigarettes [email or web address] Information not available 12/25/2022 What is your exercise level? Occasional [email or web address] Information not available 12/25/2022 Mental Status None recorded. Family History Relationship Description Onset Age of this Age Resolved Age Notes LastModified by Organization Details LastModified Time Mother Malignant neoplasm of breast [email or web address] Not available 2022 16:13:33 Maternal Grandmother Malignant neoplasm of breast Not available 2022 16:13:33 Sister Malignant neoplasm of breast [email or web address] Not available 2022 16:13:33 Maternal Aunt Malignant neoplasm of breast [email or web address] Not available 2022 16:13:33 Medical History Condition Response Other Cancer N High Blood Pressure N Colon Cancer N Cytomegalovirus N Hyperthyroidism N MRSA N Breast Cancer N Herpes (HSV) N Blood Transfusion N Lung Cancer N Depression N Hypothyroidism N Incontinence N Panic Attacks N Neurological Disorder N Deep Vein Thrombosis N Anxiety Disorder N Autoimmune disease N Arthritis N Tuberculosis/Positive PPD N Shingles N Polycystic Ovarian Syndrome N Infertility N Cervical Cancer N Hematuria N Chlamydia N Stroke N Varicosities N Seasonal allergies N Crohn's Disease N Alzheimer's/Dementia N COPD/Emphysema N Endometriosis N HPV/Genital Warts N IBS (Irritable Bowel Syndrome) N History of Abnormal Pap N High Cholesterol N Liver Disease N Kidney Infection N Fibromyalgia N Ulcer N Kidney Disease N HIV N Gallbladder disease N Sickle Cell Disease/Trait N Von Willebrand disease N ADD/ADHD N Eating Disorder N Anemia N Diabetes Mellitus (non-insulin dependent ) N Multiple Sclerosis N Ovarian Problems N Gonorrhea N Frequent Urinary Tract infections N Osteopenia N Headaches/migraines N GERD (reflux) N Ovarian Cancer N Diabetes (insulin dependent) N Seizures/Epilepsy N Breast Problems N Fibroids N Asthma N Heart Attack N Lupus N Endometrial Cancer N Rubella N Blood Clotting Disorder N Bipolar Disorder N Diabetes Mellitus (during ) N Ulcerative Colitis N Hepatitis N Heart Disease N Pulmonary Embolism N RPR N Chicken Pox N Osteoporosis N Gynecological History Statement/Question Response Flow Light Date of last HPV 05/30/2020 Date of LMP 05/14/2024 HPV Vaccine N Duration of Flow (days) 2 Most Recent Mammogram Current Control Method IUD Age at Menarche 13 Date of Last Colonoscopy Most Recent Bone Density Date of Last Pap Smear 05/30/2020 Obstetrics History GPAL:G 0 P 0 0 0 0 Immunizations Vaccine Type Date Status Note Provider [place] morejon and Address Organization Details Recorded Time COVID-19, mRNA, LNP-S, PF, 30 mcg/0.3 mL dose 05/17/2020 completed Tramea July null, [place] [facility] 07/05/2024 14:40:35 COVID-19, mRNA, LNP-S, PF, 30 mcg/0.3 mL dose 06/09/2020 completed Tramea July null, [place] [facility] 07/05/2024 14:40:35 Tdap 08/11/2021 completed Tramea July null, [facility] 07/05/2024 14:40:35 Influenza, split virus, quadrivalent, PF 03/19/2020 completed Tramea July null, [facility] 07/05/2024 14:40:35 Past Encounters Encounter ID Performer Location Encounter Start Date Encounter Closed Date Diagnosis/Indication Diagnosis SNOMED-CT Code Diagnosis ICD10 Code Diagnosis IMO Codes Diagnosis Note [id number] [facility] [address] [place] [address] 12/25/2022 15:59:47 12/26/2022 13:27:55 Vaginal discharge 458852085 N89.8 -Education provided on difference between metronidaz ole for bacterial infection and medication used for yeast infection. Pt voices understand ingPt educated on exam findings, and discussed POC. Vaginal cx collected and sent. Pt advised to avoid fragrant soaps/laun dry detergents , use of baking soda soaks, having partner change soaps, etc. Further POC pending lab result review. [id number] Karma Armstrong MD [facility] [address] [place] [address] 02/26/2023 14:26:27 02/26/2023 16:47:37 Perimenopausal disorder 974460065 N95.9 IUCD status [id number] Z9 7.5 Needs to be replaced [id number] Karma Armstrong MD [facility] [address] [place] [address] 04/14/2023 09:07:58 04/14/2023 16:22:24 Vaginal discharge 454219063 N89.8 N76.0 Candidiasis of vagina 72 845579 B37.31 [id number] Karma Armstrong MD [address] [address] 01/15/2024 12:31:31 01/15/2024 15:36:14 Vaginal discharge 096191210 N89.8 Pain in pelvis 90286295 R10.2 08930 [id number] Gali Sanches [facility] [address] [place] [address] 04/21/2024 13:31:40 04/21/2024 13:59:50 Vaginal irritation 832592892 N89.8 689923 - Avoid all over the counter creams or ointments, except A&D Ointment (if you have wool allergy do not use A&D).-DO NOT DOUCHE. Baking soda soaks will help rinse away extra discharge and help with odor.-DO NOT SHAVE, wax or laser the vulvar area (the bikini line is ok).-Some women may have problems with chronic dampness. Keeping dry is important. Choose cotton fabrics whenever you can. Swelling of labia 578772 008 N94.89 [id number] Pt c/o feeling small cystic structures bilaterall y on labia majora. Pt previously had abscess in those areas. Will treat w/abx and discussed if abscess develops will need I&D. [id number] Gali [facility]anches [facility] [address] [address] 06/30/2024 12:11:34 06/30/2024 13:28:22 Vaginal odor 286413277 N89.8 210952 - Avoid all over the counter creams or ointments, except A&D Ointment (if you have wool allergy do not use A&D).-DO NOT DOUCHE. Baking soda soaks will help rinse away extra discharge and help with odor.-DO NOT SHAVE, wax or laser the vulvar area (the bikini line is ok). -Can use OTC boric acid capsules to control odor Labial cyst 043896842 N9 0.7 456307 2 cm labial cyst seen. Previously resolved w/abx. Discussed w/pt if recurrence again will need to have I&D. Pt agreeable to plan.Rx sentF/u if no resolution of cyst [id number] Gali Sanches CNM [address] [address] 07/05/2024 14:37:57 07/05/2024 16:04:51 Labial cyst 868096304 N90.7 [id number] Pt presents w/ 3 cm left labial abscess. Was seen in the ED and given amoxicilli n. No improvemen t. I&D performed. Continue antibiotic s.F/u on Thursday to evaluate healing [id number] Gali Sanches CNM [facility] [address] [address] 07/08/2024 12:01:07 07/08/2024 15:20:12 History and physical examination, follow-up [id number] Z09 033807 I&D site healing well. No evidence of infection. Pt is feeling much improved.F /u as needed. [id number] Gali Sanches CNM [facility] [address] [address] 08/01/2024 12:12:32 08/01/2024 13:37:08 Cyst of Bartholin's gland duct 93267984 N75.0 06847 Pt presents with symptoms of recurrent labial abscess. Had bartholin' s abscess drained a few weeks ago and now experienci ng the start of similar symptoms. On exam, small amount of swelling and erythema on left side which was previously drained.Pt would like to try antibiotic s first.Disc ussed if no improvemen t will likely needs surgical interventi on to provide penitentiary solution.P t will call if she is not experienci ng any improvemen t. [id number] Gali Sanches CNM [facility] [address] [place] [address] 01/26/2025 13:36:55 01/30/2025 13:15:59 Labial cyst 737557377 N90.7 [id number] 0.5 cm left labial cyst seen.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 Pt elects abx for now but if no improvemen t will return for excision.F /u as needed Acute vaginitis 62249256 N76.0 Health Concerns Section Related Observation LastModified by Organization Detai ls LastModified Time None Recorded Concern Status LastModified by Organization Details LastModified Time None Recorded Advance Directives Directive None Recorded Payers Insurance Date Sequence Insurance Name Policy Number Policy Avila Covered Member ID Avila Member ID Guarantor Name 01/26/2025 2 [place] Liza Kirby [id number] Liza Kirby 01/26/2025 1 [employer] (MEDICARE REPLACEMENT/ ADVANTAGE - PPO) Liza Kirby [id number] Liza Kirby Notes Date Note Type Note Provider Name and Address Organization Details Recorded Time 06/30/2024 text/html ROS as noted in the HPI Fani is here for vaginal problemspatient c/o swelling in the labia area for 1 daypatient has IUD as current control Gali Sanches CNM [address] [facility], [place], [address], [place] [facility] 06/30/2024 18:24:23 07/05/2024 text/html ROS as noted in the HPI Fani is here for cyst on both side of labiapatient state the one on the right side got bigger and it pop on its ownpatient c/o that the one on the left side has been bothering her MIKIE Dee [address] [place], [address], [facility] 07/05/2024 16:00:19 07/08/2024 text/html ROS as noted in the HPI Fani is here for follow up visitpatient had abcese drain for left side if labiapatient was given pain meds for painpatient state she feels much better today Gali Sanches CNM [facility] [facility], [place], [address], [facility] 07/08/2024 12:50:39 08/01/2024 text/html ROS as noted in the HPI Fani is here for cyst on labiapatient c/o that it is on the left side of the labiapatient state it is at the beginning stage of the cyst and its not painfull Gali Sanches CNM [facility] [place], [address], [facility] 08/01/2024 13:34:36 01/26/2025 text/html Vaginal/Vulvar ProblemReported by PatientHPIFor associated symptoms, patient reportsvaginal itching. For location, patient reportsvagina. For duration, patient reportspresent for >1 month. For quality, patient reportssingle lesion/sore(patient c/o bump on labia).ROS as noted in the HPI Gali Sanches CNM [address] [place], [address], [facility] 01/29/2025 10:13:33 OBGyn Episode No OBEpisode recorded.
--- OUTSIDE RECORDS SUMMARY | 2025-02-12 16:23 | XMS_ITS | Encounter Summary ---
Author Organization [facility] Address [address] [place] [address] Care Team Providers Care Bowl Attendant Name Role Phone Aquiles Herrera DO Primary Care Provider + Burton Campbell MD Unavailable [phone] Encounter Details Date Type Department Care Team (Late st Contact Info) Description 04/09/2023 InMyRoomt Message Enc [facility] Family & Internal Medicine [facility] [address] [place] [address] Aquiles Herrera DO [address] [place] [address] Ear pimple/cyst? Social History Tobacco Use Types Packs/Day Years Used Date Smoking Tobacco: Former Cigarettes 1 - 2016 Electronic Cigarettes Smokeless Tobacco: Never Comments:Vapes with zero mil ligram nicotine Alcohol Use Standard Drinks/Week Comments No 0 (1 standard drink = 0.6 oz pur e alcohol) AUDIT-C Answer Date Recorded Frequency of Alcohol Consumption Never 11/05/2018 Average Number of Drinks Not on file 019 Frequency of Binge Drinking Not on file 10/15 PHQ-2 Answer Date Recorded Patient Health Questionnaire-2 Score 0 04/07/2023 Comments No Sex and Gender Information Value Date Recorded Sex Assigned at Female 03/02/2024 1:19 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 Not concerning that both presented at the same time. WOOD CUTTER HELPER documented in this encounter Plan of Treatment Upcoming Encounters Date Type Department Care Team (Late st Contact Info) Description 06/08/2025 8:40 AM CDT Office Visit [facility] Family & Internal Medicine - [address] [address] Aquiles Herrera DO [address] [place] [address] documented as of this encounter Visit Diagnoses Not on filedocumented in this encounter Additional Health Concerns Assessment Noted Time PHQ-9 Depression Total Score: 0 10/09/19 23 2:46 PM CDT documented as of this encounter Care Teams Bowl Attendant Relationship Specialty Start Date End Date Aquiles Herrera DO [address] [place] [address] PCP - General FAMILY PRACTICE 11/05/18 Burton Campbell MD [facility] [address] [place] [address] [place] Manager Surgery CLINICAL CARDIAC ELECTROPHYSIOLOGY 06/14/19 documented as of this encounter
--- OUTSIDE RECORDS SUMMARY | 2025-02-12 16:23 | XMS_ITS | Encounter Summary ---
Author Organization [facility] Address [address] [place] [address] Care Team Providers Care Dial Refinisher Name Role Phone Aquiles Herrera Arsen SANTOS Primary Care Provider + Burton Campbell MD Unavailable [phone] Encounter Details Date Type Department Care Team ([facility] Contact Info) Description 10/25/2024 MyChart Message Enc [facility] DEFAULT Mychart, [facility] Provider Mammogram Social History Tobacco Use Types Packs/Day Years Used Date Smoking Tobacco: Former Cigarettes 2016 Smokeless Tobacco: Never Comments:I vape currently Alcohol Use Standard Drinks/Week Comments Never 0 (1 standard drink = 0.6 oz pur e alcohol) AUDIT-C Answer Date Recorded Frequency of Alcohol Consumption Never 11/05/2018 Average Number of Drinks Not on file 019 Frequency of Binge Drinking Not on file 10/15 PHQ-2 Answer Date Recorded Patient Health Questionnaire-2 Score 0 06/09/2024 Comments No Sex and Gender Information Value Date Recorded Sex Assigned at Female 03/02/2024 1:19 PM ORACLE 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 Legal Sex Female 7:18 PM CDT Gender Identity Female 03/02/2024 1:19 PM ORACLE ANALYST Sexual Orientation Straight 11/05/2018 10 :12 AM CDT Occupation Industry Job Start Date Job End Date Disability Not on file Not on file Not on file documented as of this encounter Plan of Treatment Upcoming Encounters Date Type Department Care Team (Late Contact Info) Description 06/08/2025 8:40 AM CDT Office Visit [facility] Family & Internal Medicine [address] [address] Aquiles Herrera DO [address] [place] [address] documented as of this encounter Visit Diagnoses Not on filedocumented in this encounter Additional Health Concerns Assessment Noted Time PHQ-9 Depression Total Score: 0 10/09/19 23 2:46 PM CDT documented as of this encounter Care Teams Dial Refinisher Relationship Specialty Start Date End Date Aquiles Herrera DO [address] [place] [address] PCP - General FAMILY PRACTICE 11/05/18 Burton Campbell MD [facility] [address] [place] [address] [place] [employer] Developer CLINICAL CARDIAC ELECTROPHYSIOLOGY 06/14/19 documented as of this encounter
--- OUTSIDE RECORDS SUMMARY | 2025-02-12 16:23 | XMS_ITS | Clinical Summary ---
Author Organization [facility] Address [facility] [place] [address] Care Team Providers Care Dispatcher Radioactive Waste Disposal Name Role Phone Aquiles Herrera DO Primary Care Provide r No, Physician Unavailable Leandro Borjas DO Unavailable [phone] Allergies Active Allergy Reactions Criticality Noted Date Comments Aspirin Unknown 01/19/2009 Pt has clotting disorder Diphenhydramine Palpitations Low 05/20/2019 Ibuprofen Unknown 01/19/2009 Pt has clotting disorder Prochlorperazine Unknown 11/05/2018 Dystonic reaction Medications oxyCODONE (ROXICODONE) 10 mg tabletIndication s:Pain 1 tablet (10 mg total) Active EPINEPHrine 0.3 mg/0.3 mL auto-injection syringeIndicatio ns:Anaphylaxis Inject 0.3 mL (0.3 mg total) into the muscle as instructed as needed for anaphylaxis KEEP AT PATIENT'S HOME PER IV INFUSION PROTOCOL 1 Syringe 9 Active zolpidem (AMBIEN) 10 mg tablet Take 1 tablet (10 mg total) by mouth nightly 2 Active cetirizine (ZyrTEC) 10 mg chewable tablet Take 1 tablet (10 mg total) by mouth daily Active LORazepam (ATIVAN) 0.5 mg tablet Take 1 tablet (0.5 mg total) by mouth every 6 (six) hours as needed for anxiety Active escitalopram (LEXAPRO) 20 mg tablet 4 Active hydrocortisone 2.5 % cream Apply topically 2 (two) times a day 3 Active heparin (heparin flush) 100 unit/mL syringeIndicatio ns:Factor XII deficiency,Bleed ing disorder Push plunger to break seal, remove cap, then flush IV catheter as instructed with 5mL (=500 units) by IV push as needed for CVAD line care. 10 mL 3 4 Active doxycycline monohydrate (MONODOX) 50 mg capsule 4 Active levonorgestreL (Mirena) IUD 5 Active sodium chloride 0.9% (BD PosiFlush Normal Saline 0.9) injectionIndicat ions:Factor XII deficiency,Bleed ing disorder Push plunger to break seal, remove cap & flush each lumen of IV catheter with 10mL 0.9% NaCl as needed for CVAD line care. 100 mL 5 Active desmopressin (DDAVP) 4 mcg/mL injectionIndicat ions:Factor XII deficiency,Bleed ing disorder Add 20mcg (5mL) to 50 mL NS bag. Draw up in 60 mL syringe and infuse over 45 minutes via port access using syringe pump on normal setting (generic for DDAVP). Administer IV twice per month as needed. 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 Resolved Problems Problem Noted Date Diagnosed Date Resolved Date Melena 08/01/2022 09/08/2023 Overview (03/10/2023): Added automatically from request for surgery [id number] Encounter for insertion of Mirena IUD 10/08/2020 09/08/2023 Increased frequency of urination 05/30/2020 09/08/2023 Overview (03/10/2023): Frequency of micturition; Progress: Stable Added By: Naomy Mcneill Add to Current Problems: YES ProblemStatus: Current Immunizations Immunization Administration Dates Next Due Influenza, Quadrivalent, Spl it, Preservative Free, Intramuscular 03/19/2020 Pfizer SARS-CoV-2 Monovalent Vaccination (12+ Yrs) PURPLE 06/09/2020,05/17/2020 Surgical History Surgery Date Site/Laterality Comments KNEE SURGERY Left x 4 with reconstruction CHOLECYSTECTOMY PORTACATH PLACEMENT EYE SURGERY HIP SURGERY Left arthritis removal x 2 Medical History Medical History Date Comments Arthritis Bronchitis RSD (reflex sympathetic dystrophy) generalized, mostly left leg Factor XII deficiency clotting d isorder- (since childhood) Anemia hx Von Willebrand's disease (HCC) Medical marijuana use Obesity Chronic kidney disease Family History Medical History Relation Name Comments No Known Problems Father Breast cancer Maternal Grandmother Breast cancer Mother Breast cancer Mother's Sister Breast cancer Sister Relation Name Status Comments Father Alive Maternal Grandmother Mother Alive Mother's Sister Sister Social History Tobacco Use Types Packs/Day Years Used Date Smoking Tobacco: Former Cigarettes 1 16 2 - 2017 Smokeless Tobacco: Never Tobacco Cessation:Counseling Given: Not Answered Alcohol Use Standard Drinks/Week Comments Not Currently 0 (1 standard drink = 0.6 oz pur e alcohol) AUDIT-C Answer Date Recorded Q1: How often do you have a drink containing alc ohol? Never 09/08/2023 Average Number of Drinks Not on file 024 Frequency of Binge Drinking Not on file 08/15 Personal Safety Answer Date Recorded Have you ever been in or are you currently in a harmful physical or emotional relationship or is someone making you feel afraid or unsafe? 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 Gender Identity Not on file Sexual Orientation Not on file Occupation Industry Job Start Date Job End Date Disabled Not on file Not on file Not on file Last Filed Vital Signs Vital Sign Reading Time Taken Comments Blood Pressure 135/93 07/27/2024 3:06 PM CDT Pulse 89 07/27/2024 3:06 PM CDT Temperature 36.9 C (98.4 F) 07/27/2024 3:06 PM CDT Respiratory Rate 17 07/27/2024 3:06 PM CDT Oxygen Saturation 97% 07/27/2024 3:06 PM CDT Inhaled Oxygen Concentration - - Weight 105.4 kg (232 lb 6.4 oz) 07/27/2024 3:06 PM CDT no shoes Height 157 cm (5' 1.81) 07/27/2024 3:06 PM CDT no shoes Body Mass Index 42.77 07/27/2024 3:06 PM CDT Plan of Treatment Health Maintenance Due Date Last Done Comments Breast Cancer Screening-Mammogram 1981 Cervical Cancer Screening 1981 Depression Screening 1981 Hepatitis C Screening 1981 Varicella Vaccines (1 of 2 - 13+ 2-dose series) 1994 Hepatitis B Screening 05/26/1999 Regular Well Visit/Exam 18-64 05/26/1999 HPV Vaccines (1 - 3-dose SCD M series) 2008 Covid-19 Vaccine (3 - Pfizer risk series) 07/07/2020 06/09/2020, 05/17/2020 Influenza Vaccine (#1) 2024 03/19/2020 DTaP/Tdap/Td Vaccine (2 - Td or Tdap) 08/12/2031 08/11/2021 Pneumococcal vaccine <65 Aged Out No longer eligible based on patient's age to complete this topic Insurance HU[employer]NA CHOICE MEDICARE PPO IDPA HU[employer] CHOICE MEDICARE PPO IDPA Care Teams Dispatcher Radioactive Waste Disposal Relationship Specialty Start Date End Date Aquiles Herrera DO PCP - General 12/28/18 No, Physician 12/28/18 Leandro Borjas DO [address] [place] [id number] Medical Oncologist/Gal[place] Worker Hematology and Oncology 04/26/20
--- OUTSIDE RECORDS SUMMARY | 2025-02-12 16:23 | XMS_ITS | Clinical Summary ---
Author Organization [facility] Address [address] [place] [address] Care Team Providers Care Foreign Food Cook Specialty Name Role Phone Unknown, Provider Primary Care Provider Unavaila ble Source Comments [facility],non-owned Affiliates and Associated Physician Practices is amultiple site organization consisting of ambulatory clinics and hospital sitesin [place], [place], [place] and [place]. This disclosure is being madepursuant to the Care Everywhere program and may not contain all informatio navailable regarding this patient. Last updated [facility] Allergies Active Allergy Reactions Criticality Noted Date Comments Promethazine WASH TANK TENDER Dysfunction 02/13/2015 Dystonia polyester [Other] Anaphylaxis High 02/14/2015 Medications * Be aware that medications may not be up to date on this document. Alwaysverify current medications with the patient. DULoxetine (CYMBALTA) 20 MG capsule Take 20 mg by mouth once daily Active fentaNYL (DURAGESIC) 100 MCG/HR patch Apply 1 Patch to skin every 3 days Do not apply heat over patch. Active desmopressin (DDAVP) 4 MCG/ML injectionIndic ations:undiagn osable bleeding disorder 20 mcg by Intravenous route Three times a week Reasons: undiagnosable bleeding disorder Active Encounters Date Type Department Care Team Description 02/10/2025 Telephone [facility] - Rheumatology [address] [place] [address], [place] [address] Oziel lSater MD Appointment from Last 3 Months Social History Tobacco Use Types Packs/Day Years Used Date Smoking Tobacco: Every Day Cigarettes 1 17 Comments No Sex and Gender Information Value Date Recorded Sex Assigned at Not on file Legal Sex Female 6:29 AM 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 OFFICE 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 Gender Identity Not on file Sexual Orientation Not on file Last Filed Vital Signs Vital Sign Reading Time Taken Comments Blood Pressure 112/72 02/14/2015 2:45 PM CENTRAL OFFICE REPAIRER Pulse 92 02/14/2015 2:45 PM CENTRAL OFFICE REPAIRER Temperature 36.7 C (98.1 F) 02/14/2015 1:32 PM CENTRAL OFFICE REPAIRER Respiratory Rate 15 02/14/2015 2:45 PM CENTRAL OFFICE REPAIRER Oxygen Saturation 95% 02/14/2015 2:45 PM CENTRAL OFFICE REPAIRER Inhaled Oxygen Concentration - - Weight 74.2 kg (163 lb 9.3 oz) 02/14/2015 9:57 A M CENTRAL OFFICE REPAIRER Height 158.2 cm (5' 2.28) 02/14/2015 9:57 AM CS T Body Mass Index 29.65 02/14/2015 9:57 AM CENTRAL OFFICE REPAIRER Plan of Treatment Upcoming Encounters Date Type Department Care Team (Late st Contact Info) Description 02/16/2025 8:30 AM CENTRAL OFFICE REPAIRER Office Visit [facility] - Rheumatology [address] [place] [address], [place] [address] Oziel Sltaer MD [address] [place] [address] DIV [place] [id number] Health Maintenance Due Date Last Done Comments LIPID TESTING 1981 HIV SCREENING 1996 HEPATITIS C SCREENING 05/21/1999 DTAP/TDAP/TD VACCINES (1 - Tdap) 2000 HEPATITIS B VACCINE (1 of 3 - 19+ 3-dose series) 2000 PNEUMOCOCCAL VACCINE (1 of 2 - PCV) 2000 Cervical Cancer Screening 2002 PAP SMEAR 2002 HPV VACCINE (1 - 3-dose SCDM series) 2008 PAP with HPV 05/26/2011 MAMMOGRAM 09/04/2022 09/04/2020, 08/15, 07/27/2020, Additional history exists DEPRESSION SCREENING 03/16/2024 MEDICARE AWV CALENDAR YEAR 2024 COVID-19 VACCINE (3 - season) 2024 06/09/2020, 05/17/2020 INFLUENZA VACCINE (#1) 2024 03/19/2020 ZOSTER VACCINE (1 of 2) 05/26/2031 HIB VACCINE Aged Out No longer eligi ble based on patient's age to complete this topic MENINGOCOCCAL (Group B) VACCINE SHARED DECISION-MAKING Aged Out No longer eligible based on patient's age to complete this topic MENINGOCOCCAL GROUPS A/C/Y/W VACCINE Aged Out No longer eligible based on patient's age to complete this topic Medical Devices Implanted Type Area Building Appraiser Device Identifier Shelf Expiration Date Model / Serial / Lot Port W/Infus St Bio-Harinder Ti 8fr Implanted:Qty: 1 on 02/14/2015 by Remy Aguiar MD at [facility] Left: Chest [employer] 01/15/2016 [id number] / / [id number] Insurance Advance Directives * Full Code (Latest Code Status on File) Date Activated Date Inactivated Comments 02/14/2015 10:08 AM 02/14/2015 4:26 PM Care Teams Foreign Food Cook Specialty Relationship Specialty Start Date End Date Unknown, Provider PCP - General 06/20/24
--- OUTSIDE RECORDS SUMMARY | 2025-02-12 16:23 | XMS_ITS | Continuity of Care Document ---
Author Organization [facility] Address [address] [place] [address] Assessment No assessment recorded. Plan of Treatment Reminders Order Date Submit Date Provider Last Modified By Organization Details Last Modified Time Details Appointments None recorded. Lab bacterial vaginosis + vaginitis panel, vaginal 2024 [facility], [address] [place], [address], 5 09:26:24 Referral None recorded. Procedures None recorded. Surgeries None recorded. Imaging None recorded. Medication Orders Augmentin 500 mg-125 mg tablet 2024 025 [id number], [address], [place], [id number], 5 05:01:09 fluconazole 150 mg tablet 2024 025 [id number], [address], [place], [phone], 5 17:38:29 Patient TargetsNo targets recorded. Patient InstructionsNo instructions recorded. Reason for Referral None Reported. Results Created Date Observation Date Name Description Value Unit Range Abnormal Flag Note LastModifiedBy Organization Detail LastModifiedTime 01/27/2001/27/2025 VAGIN ITIS PLUS STD PANEL bacterial vaginosis BV POS negati ve abnormal Not Available [facility] [employer] [address] [place], [address], 01/28/2025 09:26:24 01/27/20 25 01/27/2025 VAGIN ITIS PLUS STD PANEL sd species C. spp neg negati ve normal Not Available [address], [address], 01/28/2025 09:26:24 01/27/20 25 01/27/2025 VAGIN ITIS PLUS STD PANEL sd glabrata C. gla neg negati ve normal Not Available [address], [address], 01/28/2025 09:26:24 01/27/20 25 01/27/2025 VAGIN ITIS PLUS STD PANEL chlamydia trachomatis CT neg negati ve normal This repor t is inten ded for use in clini harry monit oring and manag ement of patie nts. It is not inten ded for use in medic al-le gal appli catio n. Not Available [address], [address], 01/28/2025 09:26:24 01/27/20 25 01/27/2025 VAGIN ITIS PLUS STD PANEL neisseria gonorrhoeae GC neg negati ve normal This repor t is inten ded for use in clini harry monit oring and manag ement of patie nts. It is not inten ded for use in medic al-le gal appli catio n. Not Available [address], [address], 01/28/2025 09:26:24 01/27/20 25 01/27/2025 VAGIN ITIS PLUS STD PANEL trichomonas vaginalis TRICH neg negati ve normal Not Available [address], [address], 01/28/2025 09:26:24 Result Notes None recorded. Problems Name Problem SNOMED Code Status Onset Date Resolution Date Notes Provider Name and Address Organization Details Recorded Time von [place] disorder 839608955 Active 2008 Diana otero [facility] 5 14:40:24 Contrace ptive usage NOS Completed 201404/13/2015 Initiati on of other contrace ptive measures ; Location : None Severity : Moderate Progress : Stable Added By: Yoon Mcdaniel Add to Current Problems : YES ProblemS tatus: Resolve Not Available [facility] 1 05:33:47 Family history of malignan t neoplasm of breast in first degree relative 501164513 Active 2014 Family history of breast cancer; Location : None Progress : Stable Added By: Karma Armstrong Add to Current Problems : YES ProblemS tatus: Current Not Available [facility] 2 19:09:21 Uses IUD (intraut erine device) contrace ption 496313221 Completed 201410/17/2014 Checking , reinsert ion, or removal of intraute rine device; Location : None Progress : Stable Added By: Karma Armstrong Add to Current Problems : YES ProblemS tatus: Resolve Not Available [facility] 2 19:09:14 Uses intraute rine contrace ption 608242572 Completed 201405/30/2020 Patient with intraute rine contrace ptive device (IUD); Location : None Severity : Moderate Progress : Stable Added By: Liza Hughes Add to Current Problems : YES ProblemS tatus: Current Patient with intraute rine contrace ptive device (IUD); Severity : Moderate Progress : Stable Added By: Liza Hughes Add to Current Problems : NO ProblemS tatus: Resolve Not Available [facility] 1 05:34:10 IUCD status 347923955 Active 08/2014 Karma Armstrong MD [address], [place], [address] , [employer] [facility] 3 15:09:34 Patient encounte r status 025855491 Active 2014 Tramnils Mcdowell null, [facility] 5 14:40:24 Family history of breast cancer 873149785 Active 2018 Tramea July null, [facility] 5 14:40:24 Prescrib ed medicati on regimen behavior finding 032075278 Active 2018 Tramea July null, [facility] 5 14:40:24 Foot-evan p gait 58623938 Active 2018 Tramea July null, [facility] 5 14:40:24 Osteoart hritis of left knee joint 14768360136 9109 Active 2018 Tramea July null, [facility] 5 14:40:24 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 Tramea July null, [facility] 5 14:40:24 Primary insomnia 1645033 Active 2020 Tramea July null, [facility] 5 14:40:24 Anxiety 21437409 Active 2020 Tramea July null, [facility] 5 14:40:24 Increase d frequenc y of urinatio n 560472500 Active 2020 Tramea July null, [facility] 5 14:40:24 Melena 9912942 Active 2022 Tramea July null, [facility] 5 14:40:24 Nausea 734687698 Active 2022 Tramea July null, [facility] 5 14:40:24 Diarrhea 44995336 Active 2022 Tramea July null, [facility] 5 14:40:24 Hemorrho ids 34130543 Active 2022 Tramea July null, [facility] 5 14:40:24 Epigastr ic pain 41457483 Active 2022 Tramea July null, [facility] 5 14:40:24 Urticari a 613401009 Active 2022 Tramea July null, [facility] 5 14:40:24 Chronic rhinitis 14392325 Active 2022 Tramea July null, [facility] 5 14:40:24 Intraute rine contrace ptive device in situ 925436547 Active 2023 Tramea July null, [facility] 5 14:40:24 Problem Notes None recorded. Procedures Surgical History Date Name Laterality Status Provider Name and Address Organization Details Recorded Time 07/05/2024 I&D completed Gali Sanches, OTONIEL [address] [place], [address], [facility] 07/05/2024 15:40:25 05/30/2020 Date of Last Pap Smear completed Anastasiya Barba [facility] 02/26/2023 14:36:18 Imaging Results None recorded. Procedure Notes None recorded. Medical Equipment None Reported. Allergies Allergen ID Allergen Name Allergen Category Reaction Reaction Severity Criticality Documentation Date Start Date Code Code System Note Provider Name and Address Organization Details Recorded Time 567328 Phenergan medicatio n Not available Not available Not available 01/04/20212014 79765 8 RxNorm Sever ity: Moder ate; Not Available [facility] 01:07:31 827287 Compazine medicatio n Not available Not available Not available 01/04/20212014 82352 6 RxNorm Sever ity: Moder ate; Not Available [facility] 01:07:31 602901 prochlorp erazine medicatio n other Not available Not available 07/05/20242018 8704 RxNorm Other react ions and sever ities : 'Unkn own'. Tramea July null, [facility] 5 14:39:53 554172 aluminum aspirin Not available other Not available Not available 07/05/20242008 611 RxNorm Other react ions and sever ities : 'Unkn own'. Tramea July null, [facility] 5 14:39:53 354628 ibuprofen medicatio n other Not available Not available 07/05/20242008 5640 RxNorm Other react ions and sever ities : 'Unkn own'. Tramea July null, [facility] [employer] IV 5 14:39:53 958964 promethaz ine medicatio n Not available Not available Not available 07/05/20242022 8745 RxNorm Other react ions and sever ities : 'Unkn own'. Tramea July null, [facility] [employer] [facility] 5 14:39:53 151463 diphenhyd ramine hydrochlo ride medicatio n palpitati ons Not available Not available 07/05/20242019 1362 RxNorm Tramea July null, [facility] [employer] [facility] 5 14:39:53 569493 aspirin medicatio n Not available Not available Not available 01/26/20252008 1191 RxNorm Pt has clott ing disor mahad unrec ogniz ed react ion (text : Unkno wn, code: [id number]) (from [facility] sour e) Not Available [employer] - prod 5 13:39:28 398195 diphenhyd ramine medicatio n palpitati ons Not available low 01/26/20252019 3498 RxNorm Not Available [employer] - prod 5 13:39:28 503366 iodine medicatio n Not available Not available low 01/29/20252022 5933 RxNorm unrec ogniz ed react ion (text : Unkno wn, code: [id number]) (from [facility]) Not Available [facility] - [employer] - prod 5 10:02:32 Medications Name Sig Start Date Stop Date Status Note LastModified by Organization Details LastModified Time Mirena 21 mcg/24 hr (up to 8 years) 52 mg intrauter ine device 2014 active Mirena 20 mcg/24 hours (6 yrs) 52 mg Intraute rine Intraute rine Device RxNorm: 395796 Allow Substitu tion: True Refill Denied: No Refill DateOccu rred: 08/19/19 15 Edited by: keila(Karma Aguilar) on 06/02/19 21 Stopped by: keila(Karma Aguilar) [...] e 08/12 completed Valium 10mg Tablet RxNorm: 021806 Allow Substitu tion: True Refill Denied: No Not Available Not Available Not Available zolpidem 10 mg tablet 10 mg by oral route. active Not Available Not Available No t Available Percocet 5 mg-325 mg tablet 12/25 completed Percocet 5-325 mg oral tablet RxNorm: 9627747 Allow Substitu tion: True Refill Denied: No [...] Not Available DDAVP 02/26 completed DDAVP RxNorm: 662798 Allow Substitu tion: True Refill Denied: No Refill DateOccu rred: 07/13/19 15 Edited by: Karma Arvizu) on 06/02/19 21 Stopped by: Karma Arvizu) on Not Available Not Available Not Available Cymbalta 05/30 completed Cymbalta 20mg Capsules , Delayed Release RxNorm: 893251 Allow Substitu tion: True Refill Denied: No Refill DateOccu rred: 07/13/19 15 Edited by: Naomy Glover ) on 05/31/19 21 Stopped by: diane green(Naomy Lane ) on 05/31/19 21 Not Available Not Available Not Available Lyrica 06/24 completed Lyrica RxNorm: 402246 Allow Substitu tion: True Refill Denied: No [...] Updated DateTime 01/26/2025 157.48 cm 42.6 kg/m2 613698.02 g 120/70 mm[Hg] Diana Mcdowell [employer] [facility] 01/26/2025 13:59:25 Social History Question Answer Notes LastModified by Organizat ion Details LastModified Time Tobacco Smoking Status Never Smoker Daylin otero, [employer] [facility] 12/25/2022 16:14:50 Are You Blind Or Do You Have Difficulty Seeing? No [email or web address] Information not available 12/25/2022 Are You Deaf Or Do You Have Serious Difficulty Hearing? No [email or web address] Information not available 12/25/2022 What Type Of Diet Are You Following? REGULAR [email or web address] Information not available 12/25/2022 What Is The Highest Grade Or Level Of School You Have Completed Or The Highest Degree You Have Received? [id number] Information not available 12/25/2022 How Many Children Do You Have? 0 [email or web address] Information not available 06/30/2024 What Is Your Relationship Status? Single Information not available 12/25/2022 Are You Sexually Active? Yes [email or web address] Information not available 12/25/2022 Sex: Unknown Functional Status Question Answer Note LastModified by Organizat ion Details LastModified Time Do you use any illicit or recreational drugs? No [email or web address] Information not available 12/25/2022 Do you or have you ever used any other forms of tobacco or nicotine? Yes [email or web address] Information not available 12/25/2022 What is your level of alcohol consumption? None [email or web address] Information not available 12/25/2022 Do you or have you ever used smokeless tobacco? [id number] Information not available 12/25/2022 Are you currently employed? No [email or web address] Information not available 12/25/2022 Do you or have you ever used e-cigarettes or vape? Current user of electronic cigarettes [email or web address] Information not available 12/25/2022 What is your exercise level? Occasional [email or web address] Information not available 12/25/2022 Mental Status None recorded. Family History Relationship Description Onset Age of this Age Resolved Age Notes LastModified by Organization Details LastModified Time Mother Malignant neoplasm of breast [email or web address] Not available 2022 16:13:33 Maternal Grandmother Malignant neoplasm of breast [email or web address] Not available 2022 16:13:33 Sister Malignant neoplasm of breast Not available 2022 16:13:33 Maternal Aunt Malignant neoplasm of breast [email or web address] Not available 2022 16:13:33 Medical History Condition Response Other Cancer N High Blood Pressure N Colon Cancer N Cytomegalovirus N Hyperthyroidism N Breast Cancer N Herpes (HSV) N MRSA N Blood Transfusion N Lung Cancer N Depression N Hypothyroidism N Incontinence N Panic Attacks N Neurological Disorder N Deep Vein Thrombosis N Anxiety Disorder N Autoimmune disease N Arthritis N Shingles N Tuberculosis/Positive PPD N Infertility N Polycystic Ovarian Syndrome N Cervical Cancer N Chlamydia N Hematuria N Stroke N Varicosities N Seasonal allergies N Crohn's Disease N Alzheimer's/Dementia N COPD/Emphysema N Endometriosis N HPV/Genital Warts N IBS (Irritable Bowel Syndrome) N History of Abnormal Pap N High Cholesterol N Liver Disease N Kidney Infection N Fibromyalgia N Ulcer N Kidney Disease N HIV N Gallbladder disease N Von Willebrand disease N Sickle Cell Disease/Trait N ADD/ADHD N Eating Disorder N Diabetes Mellitus (non-insulin dependent ) N Anemia N Ovarian Problems N Multiple Sclerosis N Gonorrhea N Frequent Urinary Tract infections N Osteopenia N Headaches/migraines N GERD (reflux) N Ovarian Cancer N Diabetes (insulin dependent) N Seizures/Epilepsy N Breast Problems N Fibroids N Asthma N Heart Attack N Endometrial Cancer N Lupus N Rubella N Blood Clotting Disorder N [...] Immunizations Vaccine Type Date Status Note Provider Nam e and Address Organization Details Recorded Time COVID-19, mRNA, LNP-S, PF, 30 mcg/0.3 mL dose 05/17/2020 completed Tramea July null, [facility] 07/05/2024 14:40:35 COVID-19, mRNA, LNP-S, PF, 30 mcg/0.3 mL dose 06/09/2020 completed Tramea July null, [facility] 07/05/2024 14:40:35 Tdap 08/11/2021 completed Tramea July null, [facility] 07/05/2024 14:40:35 Influenza, split virus, quadrivalent, PF 03/19/2020 completed Tramea July null, [facility] [employer] [facility] 07/05/2024 14:40:35 Past Encounters Encounter ID Performer Location Encounter Start Date Encounter Closed Date Diagnosis/Indication Diagnosis SNOMED-CT Code Diagnosis ICD10 Code Diagnosis IMO Codes Diagnosis Note [id number] Gali Sanches [facility] [address] [place] [id number] 01/26/2025 13:36:55 01/30/2025 13:15:59 Labial cyst 919918660 N90.7 163747 0.5 cm left labial cyst seen.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 Pt elects abx for now but if no improvemen t will return for excision.F /u as needed Acute vaginitis 86961034 N76.0 Health Concerns Section Related Observation LastModified by Organization Detai ls LastModified Time None Recorded Concern Status LastModified by Organization Details LastModified Time None Recorded Payers Encounter Date Sequence Insurance Name Policy Number Policy Avila Covered Member ID Avila Member ID Guarantor Name 01/26/2025 1 [employer] (MEDICARE REPLACEMENT/ ADVANTAGE - PPO) Liza Maile Kirby [id number] Liza Kirby 01/26/2025 2 [place] Liza Maile Kirby [id number] Liza Kirby Notes Date Note Type Note Provider Name and Address Organization Details Recorded Time 01/26/2025 text/html Vaginal/Vulvar ProblemReported by PatientHPIFor associated symptoms, patient reportsvaginal itching. For location, patient reportsvagina. For duration, patient reportspresent for >1 month. For quality, patient reportssingle lesion/sore(patient c/o bump on labia).ROS as noted in the HPI Gali Sanches, OTONIEL [address] [facility], [place], [address], [facility] 01/29/2025 10:13:33 OBGyn Episode No OBEpisode recorded.
--- OUTSIDE RECORDS SUMMARY | 2025-02-12 16:24 | XMS_ITS | Patient Health Record ---
Author Organization [facility] [place] ([address]) Address [address] [place] [address] Care Team Providers Care Seismographer Name Role Phone Onieltiara Aquiles Primary Care Provider Hernan Mitchell Unavailable [phone] Allergies Allergen (clinical drug ingredient) Drug/Non Drug Allergy documented on EMR Reaction Allergy Type Onset Date Status Information temporarily unavailable COMPAZINE (uncoded) Dystonic Allergy Active Reason For Referral No Information Medications Medication SIG (Take, Route, Fr equency, Duration) Notes Start Date End Date Status Cetirizine HCl 10 MG 1 tab(s) orally BID , 3-4 times daily PRN; Duration: 30 days Active PEPCID 20 mg 1 tab(s) orally 2 ti mes a day; Duration: 30 days Active CETIRIZINE 10 mg 1 tab(s) orally BID, 3-4 times daily PRN; Duration: 30 days Active Pepcid 20 MG 1 tab(s) orally 2 ti mes a day; Duration: 30 days Active Lexapro 20 MG 1 tab(s) orally once a day Active oxyCODONE HCl 5 MG 1 tab(s) orally ever y 8 hours, PRN Active Zolpidem Tartrate 10 MG 1 tab(s) orally once a day (at bedtime) Active LEXAPRO 20 mg 1 tab(s) orally once a day Active ZOLPIDEM 10 mg 1 tab(s) orally once a day (at bedtime) Active OXYCODONE 5 mg 1 tab(s) orally ever y 8 hours, PRN Active Social History Tobacco Use: Social History Observation Description Date Details (start date - stop date) Unknown Smoking Smart Form: Question Answer Notes Are you a: Uses tobacco in other forms Problems Problem Type SNOMED Code ICD Code Onset Dates Problem Status W/U Status Risk Notes Problem Information temporarily unavailable Chronic rhinitis (J31.0) Active confirmed Problem Information temporarily unavailable Other urticaria (L50.8) Active confirmed Problem Information temporarily unavailable Flushing (R23.2) Active confirmed Problem Information temporarily unavailable Elevated blood-pressure reading, without diagnosis of hypertension (R03.0) Active confirmed Problem Information temporarily unavailable Tobacco use (Z72.0) Active confirmed Plan Of Treatment Pending Test Test Name Order Date TRYPTASE 01/19/2023 ALPHA GAL PANEL 01/19/2023 Insurance Providers Payer Name Payer Address Payer Phone Subscriber Number Group Number Insured Name Patient Relationship to Insured Coverage Start Date Coverage End Date [employer] [address] [address] [place] [address] [id number] Liza Kirby Self - patient is the insured Medical (General) History Medical History History ICD Code Anxiety disorder, unspecified F41.9 Insomnia, unspecified G47.00 Chronic rhinitis J31.0 Other urticaria L50.8 Flushing R23.2 Surgical History Surgery Date(Month/Year) Knee reconstruction 03/16/1999 Knee arthritis removal 03/17/1997 Knee arthritis removal 03/16/2004 Gallbladder removal 03/16/2012 Port placement 03/16/2016 Port placement 11/15/2007 Eye crossing 11/14/1982 Eye crossing 11/14/2016 Hospitalization History Reason Date(Month/Year) blood clotting disorder
[2025-02-12 16:28] VITALS: BP 161/69; PULSE 96; RESP 18; TEMP 35.9; O2SAT 96
--- NOTE | 2025-02-12 16:35 | ED_ITS ---
HPI - URI/Sore Throat General Chief Complaint: Upper Respiratory Infection Stated Complaint: Cold Like patient presents to the [facility] with complaints of nasal congestion, scratchy throat, headache, fatigue, cough, wheezing, shortness of breath. Patient noted any time she has upper respiratory/ cold symptoms she does and with bronchitis currently does not have an inhaler. No medication remedies attempted for symptoms. Of note patient does report she is currently taking amoxicillin for a vaginal cyst. Denies fever, chills, body aches, nausea, vomiting, diarrhea, sore throat Related Data Home Medications ?Medication ?Instructions ?Recorded ?Confirmed ?Last Taken ?Type zolpidem 10 mg tablet 10 tablet HS 08/11/21 Unknown History desmopressin 4 mcg/mL injection mcg 02/12/25 Unknown History solution escitalopram oxalate 20 mg tablet mg 02/12/25 Unknown History lorazepam 1 mg tablet mg 02/12/25 Unknown History oxycodone 10 mg tablet mg 02/12/25 Unknown History Allergies Allergy/AdvReac Type Severity Reaction Status Date / Time prochlorperazine Allergy Mild Unknown Verified 10/04/22 21:50 promethazine Allergy Mild Unknown Verified 10/04/22 21:50 Shrimp Allergy Severe THROAT Uncoded 10/04/22 21:50 SWELLS RASH Contrast Media Allergy Mild Unknown Uncoded 10/04/22 21:50 Review of Systems Constitutional: Constitutional: Reports as per HPI, Denies chills, Reports fatigue, Denies fever(s) and Denies weakness Eyes: Eyes: Reports no additional eye complaints ENT: Reports as per HPI, Denies vertigo, Denies dizziness, Reports nasal congestion and Denies sore throat Cardiovascular: Cardiovascular: Reports no additional cardiovascular complaints Respiratory: Respiratory: Reports as per HPI, Reports chest congestion, Reports cough, Reports dyspnea and Reports wheezing Gastrointestinal: Gastrointestinal: Reports no additional gastrointestinal complaints Genitourinary: Genitourinary: Reports no additional female genitourinary complaints Musculoskeletal: Musculoskeletal: Reports as per HPI, Denies back pain and Denies myalgias Integumentary/Breasts: Skin/Breast: Reports as per HPI, Denies erythema and Denies rash Neurologic: Reports as per HPI, Denies vertigo, Denies dizziness, Reports headache(s) and Denies weakness Psychiatric: Psychiatric: Reports no additional psychiatric complaints Endocrine: Endocrine: Reports no additional endocrine complaints Hematologic/Lymphatic: Hematologic/Lymphatic: Reports no additional hematologic/lymphatic complaints Allergic/Immunologic: Allergic/Immunologic: Reports as per HPI and Reports wheezing PMFSH Past Medical History Medical History Factor XII deficiency Neuropathy Port-A-Cath in place RSD (reflex sympathetic dystrophy) Surgical History Surgical History History of cholecystectomy History of orthopedic surgery History of strabismus surgery Social History Social History Smoking status: Current every day smoker Tobacco type: e-cigarettes/vaping Additional smoking assessment comments: Currently vaping Substance use type: does not use Living arrangements: with family Gender identity (if verbalized by the patient): Female Exam Const: General: healthy appearing and no acute distress Nutritional Appearance: well nourished Orientation/consciousness: patient oriented x3 Limitations: no limitations HENMT: Head: normal to inspection Ears: external ears normal and TM's normal bilaterally Face/Nose/Sinus: Normal external nose present and Normal nares present Face and sinus: normal facial exam and sinuses nontender Mouth: Yes Normal oral and palatal mucosa present, Yes lip normal and Yes moist mucous membranes Throat: posterior oropharynx normal Neck: Neck: normal visual inspection and no lymphadenopathy Resp: Effort & Inspection: normal respiratory effort Auscultation: no crackles, no rales, no rhonchi, wheezes expiratory wheezes, inspiratory wheezes and scattered wheezes and lung sounds not diminished Other: bronchospasm cough noted Cardio: Rate: regular rate Rhythm: regular rhythm Skin: General skin exam: normal color Rashes: no rashes Wounds: no wounds Neuro: General: patient oriented x3 Speech: normal speech Gait exam (Neuro): Normal gait present Extrem: General: normal to inspection and no clubbing, cyanosis or edema Psych: Mental Status: mental status grossly normal Affect: normal affect Attitude: cooperative Course Course Level of Care: Express Care Visit Vital Signs Vital signs: Vital Signs Temperature 96.6 F L 02/12/25 16:28 Pulse Rate 96 02/12/25 16:28 Respiratory Rate 18 02/12/25 16:28 Blood Pressure 161/69 H 02/12/25 16:28 Pulse Oximetry 96 02/12/25 16:28 Oxygen Delivery Room Air 02/12/25 16:28 Temperature 96.6 F L 02/12/25 16:28 Pulse Rate 96 02/12/25 16:28 Respiratory Rate 18 02/12/25 16:28 Blood Pressure 161/69 H 02/12/25 16:28 Pulse Oximetry 96 02/12/25 16:28 Oxygen Delivery Room Air 02/12/25 16:28 MDM - URI/Sore Throat MDM Narrative Medical decision making narrative: spoke with patient about the tightest pain viral in nature and educated patient on inhaler use. The patient was evaluated by myself in the [facility]. History is obtained from patient who is an independent historian and physical exam was performed. Available medical records were reviewed at this time. Exam findings show no acute concerns or changes; patient is non-toxic appearing and is in no distress. Patient is appropriate for outpatient treatment and follow-up. I have evaluated and discussed social determinants of health with the patient that could potentially impact subsequent diagnosis and treatment plans. Differential diagnosis and treatment plan were discussed with the patient. Patient agrees with discussion and after shared medical decision making agrees with plan of care. All questions were answered to the patient's satisfaction. Differential Diagnosis Differential diagnosis: Likely upper respiratory infection, croup, otitis media, sinusitis, viral infection, bronchitis, influenza and pharyngitis Medical Records Attestation: I reviewed the patient's medical records. Discharge Plan Discharge Clinical Impression: Bronchitis Patient Disposition: Home Condition: Stable Instructions: Antibiotic Form, Acute Bronchitis (ED) Additional Instructions: you have been diagnosed with bronchitis, this is more commonly a viral illness. Taking medications to control your symptoms will help until your body gets rid of this virus. Antibiotics will not work to get you better sooner. Bronchitis does occasionally a post viral cough that is dry and hacking in na ture that can last 6-8 weeks. Medication you can take to make you feel better: prednisone as directed. this medication can cause jitteriness or palpitations. If this happens You may stop this medication. albuterol inhaler every 4 hours as needed for cough, shortness of breath, or wheezing. Tessalon Perles/benzonatate for cough. These can be taken 3 times a day as needed. May also use [id number] medications like Mucinex, Sudafed, Flonase, Tylenol, and ibuprofen. If your symptoms worsen or last longer than 7-10 days follow-up with primary care provider or emergency room as needed. Patient Language: Azerbaijani Prescriptions: New benzonatate 200 mg capsule 200 mg PO TID PRN (Reason: cough) Qty: 30 0RF methylprednisolone [Medrol (Lukasz)] 4 mg tablets,dose pack See Rx Instructions .ROUTE .COMPLEX Qty: 21 0RF Rx Instructions: for 6 days albuterol sulfate [Ventolin HFA] 90 mcg/actuation HFA aerosol inhaler 2 puff inhalation QID PRN (Reason: shortness of breath or wheezing) Qty: 8.5 0RF No Action zolpidem 10 mg tablet 10 tablet HS desmopressin 4 mcg/mL solution lorazepam 1 mg tablet escitalopram oxalate 20 mg tablet oxycodone 10 mg tablet Follow-up/Referrals: Javier,DO Aquiles [Primary Care Provider] Time of Disposition: 16:39
== END 2025-02-12 16:46 | disposition home or self-care (01) ==
PROVIDERS: Emergency Provider Nurse Practitioner Family; PCP Student in an Organized Health Care Education/Training Program
DX: J40 Bronchitis, not specified as acute or chronic (principal); F17.290 Nicotine dependence, other tobacco product, uncomplicated; G62.9 Polyneuropathy, unspecified; G90.50 Complex regional pain syndrome I, unspecified; D68.2 Hereditary deficiency of other clotting factors
CPT/HCPCS: 99213; G0463